=== PATIENT | female | born 1935 | race Caucasian/White ===

== ENCOUNTER → 2018-05-18 12:21 | Outpatient (CLI) | payer MEDICARE, OTHER, SELFPAY ==
--- NOTE | 2018-05-18 | DI.US.S_ITS ---
PROCEDURE: US ARTERIAL DUPLEX LE RT INDICATIONS: EDEMA TECHNIQUE: Color and pulse Doppler interrogation was performed of the right lower extremity arterial system, with image documentation. COMPARISON: None. FINDINGS: Common femoral artery: 83 cm/sec, with triphasic flow. Deep femoral artery: 61 cm/sec, with triphasic flow. Proximal superficial femoral artery: 91 cm/sec, with biphasic flow. Mid superficial femoral artery: 79 cm/sec, with biphasic flow. Distal superficial femoral artery: 74 cm/sec, with biphasic flow. Popliteal artery: 88 cm/sec, with biphasic flow. Posterior tibial artery: 93 cm/sec, with biphasic flow. Anterior tibial artery/dorsalis pedis: 32 cm/sec, with biphasic flow. Juarez-scale imaging description: Mild calcific and soft plaque over the right lower extremity, no area of significant stenosis found. Source of bleeding is not identified. IMPRESSION: Mild atherosclerotic irregularity involving the lower extremity arterial vasculature on the right, but no significant stenosis is seen. No dissection suspected. Source of the reported right lower extremity swelling and pain is not identified by this study. Dictated by: Luis Acosta M.D. on 05/18/2018 at 16:19 Approved by: Luis Acosta M.D. on 05/18/2018 at 16:22
== END ==
PROVIDERS: Family Provider Internal Medicine; PCP Internal Medicine; Visit Provider Internal Medicine
DX: R60.0 Localized edema (principal); I70.201 Unspecified atherosclerosis of native arteries of extremities, right leg; M79.661 Pain in right lower leg
CPT/HCPCS: 93926

== ENCOUNTER 2021-01-24 10:59 | Emergency (ER) | payer MEDICARE, OTHER, SELFPAY ==
[2021-01-24 11:01] VITALS: BP 137/67; PULSE 70; RESP 18; TEMP 37.1; O2SAT 98; BMI 25.8
--- NOTE | 2021-01-24 11:22 | DI.RAD.S_ITS ---
PROCEDURE: XR WRIST LT MIN 3V INDICATIONS: swelling TECHNIQUE: 4 views of the wrist were acquired. COMPARISON: None. FINDINGS: Bones: Osseous structures are demineralized. There is a nondisplaced fracture of the distal radial metaphysis. In addition there is a minimally displaced fracture of the base of the ulnar styloid. Mild degenerative changes of the wrist. No scaphoid fracture. Soft tissues: No suspicious soft tissue calcifications. IMPRESSION: Nondisplaced distal radial fracture. Mildly displaced ulnar styloid fracture. Dictated by: Orlin Wetzel D.O. on 01/24/2021 at 10:43 Approved by: Orlin Wetzel D.O. on 01/24/2021 at 10:45
--- NOTE | 2021-01-24 11:29 | ED_ITS ---
HPI - Extremity Injury (Upper) General Chief Complaint: Extremity Injury, Upper Stated Complaint: fell left wrist really hurts Time Seen by Provider: 01/24/21 11:22 Source: patient Mode of arrival: Ambulatory Limitations: no limitations History of Present Illness HPI narrative: This is a 85-year-old female who comes with a ground level fall yesterday around 1300. Patient was walking her dog when it stopped suddenly in front of her and she tripped over it and fell forward on an outstretched hand with her left upper extremity into a stone wall. Patient denies any numbness or tingling or any weakness. She has pain over the distal ulnar region. She has some swelling and ecchymosis over the thumb and thenar eminence but denies any significant pain in the bones of that region. She does have several lacerations over the thumb as well as near eminence that occurred. Patient states she did not wash it out initially but did later. Patient denies any numbness, tingling or weakness. She states she did hit her head and has a small abrasion. She states she does not take any medications regularly besides occasional NSAIDs. No aspirin or other anticoagulants. No neck or back pain. No loss of consciousness. No headache. No vision changes. No chest pain or shortness of breath. No GI or urinary symptoms. Patient is unsure of her tetanus status. She is allergic to penicillin. Related Data Previous Rx's Medication Instructions Recorded oxycodone-acetaminophen [Percocet] 1 tab PO Q6HP PRN #10 tab 08/25/16 cephalexin 500 mg PO Q6H #20 cap 01/24/21 cephalexin 500 mg PO Q6H #20 cap 01/24/21 tramadol 50 mg PO Q6H PRN #20 tab 01/24/21 tramadol [Ultram] 50 mg PO Q6H PRN #20 tab 01/24/21 Allergies Allergy/AdvReac Type Severity Reaction Status Date / Time Penicillins [PENICILLINS] Allergy Mild Unverified 01/03/18 13:07 Review of Systems Review of Systems ROS Unobtainable: All systems reviewed & are unremarkable except as noted in HPI and below Patient History Surgical History Status post surgery (10/30/15) Social History Smoking Status: Former smoker Smoking Status: Former smoker alcohol intake frequency: 0-2 drinks per day Substance Use Type: does not use Exam Narrative Exam Narrative: GEN: Patient appears in mild distress. HEAD: No evidence of trauma except for abrasion on the left., no raccoon/Hopson sign. NECK: Nontender, painless range of motion, trachea midline Negative for Nexus criteria, there is no mid line tenderness, distracting injury, altered mental status, neuro deficit, recent EtOH. EYES: PERRLA, EOMI ENT: External inspection normal, trachea is midline, no dental or oral injury, airway is normal and with normal occlusion, No bony tenderness RESP: Chest is nontender and has symmetric movement, no ecchymosis, breath sounds are normal no crackles, wheezes or rales CVS: Heart sounds are normal, no murmur noted, No JVD. ABG/GI: Nontender, soft, normal bowel sounds, no distention, no organomegaly NEURO: Oriented AOx3, neuro is grossly intact, sensation and motor is normal all 4 extremities moving, cranial nerves II through XII are intact, GCS is 15 PSYCH: Normal mood and affect SKIN: Patient has a laceration on the thenar eminence of the left thumb which is an avulsion flap. It is not well aligned. It is macerated and does not appear injected or visibly dirty. Patient also has a abrasion between the distal and proximal joint of the left thumb into the soft tissue. And patient has a small laceration of the distal thumb which appears superficial. Warm and dry, no crepitus and without decubitus BACK: No CVA tenderness, no vertebral tenderness, no step-off's, no crepitus EXT: Patient has tenderness over the distal ulna on of the left wrist. She has bruising and swelling over the radial side but is nontender and has bruising of the hand was thenar eminence and the thumb but has no bony tenderness of the carpal, hand or fingers. Patient has normal sensation, cap refills less than 2 seconds, hips are nontender, no pedal edema, normal color and temperature, normal range of motion of extremities with normal tendon exam, 2+ pulses in all four extremities Initial Vital Signs Initial Vital Signs: Vital Signs Temperature 98.7 F 01/24/21 11:01 Pulse Rate 70 01/24/21 11:01 Respiratory Rate 18 01/24/21 11:01 Blood Pressure 137/67 01/24/21 11:01 Pulse Oximetry 98 01/24/21 11:01 Course Orders Ordered: Discontinued Medications Bacitracin (Bacitracin Oint 0.9 Gm Pckt) 1 applic TOP NOW ONE Stop: 01/24/21 12:48 Last Admin: 01/24/21 12:52 Dose: 1 applic Documented by: GRAHAM Diphtheria/Tetanus/Acell Pertussis (Tet,Diph,Pertuss(Acell),Vac/Pf 0.5 Ml Syringe) 0.5 ml IM .ONCE ONE Stop: 01/24/21 11:37 Last Admin: 01/24/21 12:09 Dose: 0.5 ml Documented by: GRAHAM Consultations Consultation #1: Dr. Rosario, Time: 12:15 Vital Signs Vital signs: Vital Signs - 8 hr 01/24/21 12:47 Pulse Rate 74 Blood Pressure 114/73 Pulse Oximetry 97 [facility] - Extremity Injury (Upper) Imaging Data Extremity x-ray #1: Radiologist's Impression: Nondisplaced distal radial fracture as well as mildly displaced ulnar styloid fracture. Patient has mild degenerative changes of the wrist with no scaphoid fractures. [facility] Narrative Medical decision making narrative: This is an 85-year-old female with mechanical ground level fall. Discussed with patient she did have a small abrasion to her forehead. She does not have any symptoms she is not currently anticoagulated we discussed imaging and she defers at this time but we discussed return precautions and signs and symptoms to watch for. She does have a radial and ulnar fracture and was placed in splint. She has laceration on the palm of her thumb which is about 24 hours out, it does not appear acutely infected but is somewhat macerated in appears to be a bit high risk for infection and after discussion patient defers closure. We did Steri-Strip the area and discussed wound and patient was started on oral antibiotics. She has several other small abrasions and lacerations that do not require repair at this time. Patient is going to follow-up with Orthopedic surgery all questions answered. Discharge Plan Departure Patient Disposition: Home Clinical Impression: Left ulnar fracture, Laceration of hand, Distal radial fracture Instructions: DI for Wrist Fracture, DI for Open Laceration Activity Restrictions/Additional Instructions: Follow-up with Orthopedic surgery this week for recheck. Call Monday morning for an appointment. Take antibiotics until completely gone. You may take Tylenol up to a 1000 mg every 8 hours as needed for pain. If this is inadequate then take pain medication as prescribed. You may take pain medication 1-2 tablets every 6-8 hours as needed. This medication can make you sleepy do not drive, perform hazardous activities or make any major decisions while taking it. This medication will make you constipated, take a stool softener 1-2 times daily until stools are soft and regular. Splint Care: Keep splint clean and dry. Elevated affected body part to decrease swelling. OK to use ice pack on the affected body part. Use for 15-20 minutes each time, for 5-6x per day. If you develop worsening pain, numbness, tingling, discoloration of the affected body part, loosen the splint by loosening the YONI wrap, and either see your doctor for an urgent re-assessment, or return to the Emergency Department. Return to the Emergency Department for any new or worsening symptoms. Wound Care: Keep wound(s) clean and dry. Wash daily with soap and water only. Do not use over the counter products (alcohol or peroxide)on the wounds unless instructed by a physician, you may use a topical triple antibiotic ointment to the affected area twice daily. If wound condition worsens (increased/expanding redness, developing fluid blisters, or worsening pain), either contact your doctor for an urgent re- assessment , or return to the Emergency Department. Return to the Emergency Department for any new or worsening symptoms. Return if fever greater than 100.4 Fahrenheit, increased swelling, increasing pain or worsening symptoms such as increased discharge or spreading redness. Prescriptions: New cephalexin 500 mg capsule 500 mg PO Q6H Qty: 20 RF: 0 tramadol [Ultram] 50 mg tablet 50 mg PO Q6H PRN (Reason: pain) Qty: 20 RF: 0 cephalexin 500 mg capsule 500 mg PO Q6H Qty: 20 RF: 0 tramadol 50 mg tablet 50 mg PO Q6H PRN (Reason: pain) Qty: 20 RF: 0 No Action oxycodone-acetaminophen [Percocet] 5 MG/325 MG tablet 1 tab PO Q6HP PRNQty: 10 RF: 0 Referrals: Malini Ledesma MD [Primary Care Provider] -
[2021-01-24] MEDS: TET,DIPH,PERTUSS(ACELL),VAC/PF 0.5 ML SYRINGE IM (12:09)
[2021-01-24 12:47] VITALS: BP 114/73; PULSE 74; O2SAT 97
[2021-01-24] MEDS: BACITRACIN OINT 0.9 GM PCKT 1 APPLIC TOP (12:52)
== END 2021-01-24 13:14 | disposition home or self-care (01) ==
PROVIDERS: Emergency Provider Emergency Medicine; Family Provider Internal Medicine; PCP Internal Medicine
DX: S52.602A Unspecified fracture of lower end of left ulna, initial encounter for closed fracture (principal); S52.502A Unspecified fracture of the lower end of left radius, initial encounter for closed fracture; S61.412A Laceration without foreign body of left hand, initial encounter; W19.XXXA Unspecified fall, initial encounter; Z23 Encounter for immunization
CPT/HCPCS: 29125; 73110; 90471; 99283; 99284; 90715

== ENCOUNTER 2023-01-23 10:43 | Emergency (ER) | payer MEDICARE, OTHER, SELFPAY ==
[2023-01-23] VITALS (19 sets, daily range): BP systolic 149–197; BP diastolic 70–91; PULSE 59–78; RESP 14–16; TEMP 36.7; O2SAT 83–99; BMI 29.3
--- NOTE | 2023-01-23 10:57 | DI.CT.S_ITS ---
PROCEDURE: CT HEAD/BRAIN WO CON INDICATIONS: Left facial droop. TECHNIQUE: Noncontrast 4.5 mm thick angled axial sections acquired from the foramen magnum to the vertex, with coronal and sagittal reformats. For radiation dose reduction, the following was used: automated exposure control, adjustment of mA and/or kV according to patient size. COMPARISON: None. FINDINGS: Image quality: Excellent. CSF spaces: Basal cisterns are patent. No extra-axial fluid collections. The ventricles are symmetric in size and shape. Brain: No intracranial bleeds or masses. There is cerebral volume loss for age, with resultant ventricular and sulcal prominence. There are periventricular and deep white matter chronic small vessel ischemic changes. There is intracranial internal carotid artery atherosclerosis. Skull and face: Calvarium and visualized facial bones appear intact, without suspicious lesions. Sinuses: Visualized sinuses and mastoids are clear. IMPRESSION: 1. No acute intracranial abnormalities. 2. Cerebral volume loss and chronic microvascular ischemic changes. Dictated by: Monique Davis M.D. on 01/23/2023 at 11:54 Approved by: Monique Davis M.D. on 01/23/2023 at 11:55
--- NOTE | 2023-01-23 10:58 | DI.CT.S_ITS ---
PROCEDURE: CT ANGIO HEAD AND NECK INDICATIONS: Left facial droop, t-5 TECHNIQUE: After the administration of intravenous contrast, 1 mm thick sections acquired from the aortic arch through the [place]. Post-contrast 4.5 mm thick sections then re-acquired from the foramen magnum to the vertex. 3-dimensional zlkhxct-[id number]-[id number] (MIP) and/or volume rendering reformats were acquired of the central intracranial vasculature and neck separately. For radiation dose reduction, the following was used: automated exposure control, adjustment of mA and/or kV according to patient size. COMPARISON: [facility], CT, CT HEAD/BRAIN WO CON, 01/23/2023, 11:24. FINDINGS: Image quality: Streaky artifacts in the thoracic inlet and mid neck. BRAIN: CSF spaces: Ventricles are normal in size and shape. Basal cisterns are patent. No extra-axial fluid collections. Brain: No midline shift. No intracranial bleeds or masses. Juarez-white matter interface appears intact. Skull and face: Calvarium and facial bones appear intact, without suspicious lesions. Orbits appear normal. Sinuses: Sinuses and mastoids are clear. HEAD CT ANGIOGRAPHY: Anterior circulation: Intracranial internal carotid arteries are normal in size and flow. The flow within the paired anterior cerebral arteries is normal and symmetric. The flow within the middle cerebral arteries is normal and symmetric. The anterior communicating artery is seen. No aneurysms are seen. Posterior circulation: Visualized portions of the vertebral arteries demonstrate normal caliber, and join to form a normal appearing basilar artery. Flow within the posterior cerebral arteries is normal and symmetric. No aneurysms are seen. NECK CT ANGIOGRAPHY: Carotid system: The great vessels demonstrate a conventional anatomy as they arise from the aortic arch. The origins of the common carotid arteries appear patent. The proximal left common carotid artery is partially obscured by streaky artifact. The common carotid arteries otherwise demonstrate normal caliber and courses. The bifurcation regions are both widely patent. The internal carotid arteries demonstrate normal calibers and courses. Posterior circulation: The origins of the vertebral arteries both appear widely patent. The more superior extracranial portions of both vertebral arteries also demonstrate normal courses and calibers. They join to form a normal appearing basilar artery. Soft tissues: There are bilateral thyroid nodules. Bones: No suspicious bony lesions. Visualized cervical spine appears normally aligned. IMPRESSION: 1. No acute intracranial abnormalities. Consider MRI if clinical suspicion for acute ischemia is high. 2. No large vessel occlusion or high-grade stenosis in anterior or posterior circulations. 3. No large fracture occlusion or high-grade stenosis in cervical carotid arteries or vertebral arteries bilaterally. 4. Bilateral thyroid nodules. Consider thyroid ultrasound for follow-up. Any quantitative measurements of stenosis were performed using NASCET criteria. Dictated by: Monique Davis M.D. on 01/23/2023 at 12:58 Approved by: Monique Davis M.D. on 01/23/2023 at 13:07
[2023-01-23 11:12] LABS: Add Manual Diff / Slide Review NO; Basophils Absolute Auto 0 /uL (0-100); Basophils Percent Auto 0.6 % (0-2); Eosinophils Absolute Auto 100 /uL (0-450); Eosinophils Percent Auto 2.1 % (2-4); Hematocrit 38.6 % (36-46); Hemoglobin 13.2 g/dL (12.0-16.0); Lymphocytes Absolute Auto 1500 /uL (1100-4500); Lymphocytes Percent Auto 24.7 % (25-40); Mean Corpuscular Hemoglobin 29.3 PG (26-34); Monocytes Absolute Auto 600 /uL (0-900); Neutrophils Absolute Auto 3900 /uL (1500-7000); Neutrophils Percent Auto 63.6 % (50-75); Platelet Count 319 X10^3/uL (150-400); Red Blood Cell Count 4.49 X10^6/uL (4.0-5.2); White Blood Cell Count 6.2 X10^3/uL (4.5-11.0)
[2023-01-23 11:13] LABS: PTT Partial Thromboplastin Tim 31 SECONDS (26-36)
[2023-01-23 11:18] LABS: Alanine Aminotransferase 30 IU/L (<35); Albumin 4.4 g/dL (3.5-5.0); Albumin Globulin Ratio 1.4 (1.0-2.8); Alkaline Phosphatase 128 U/L (38-126); Aspartate Aminotransferase 34 IU/L (14-36); Bilirubin Total 0.6 mg/dL (0.2-1.3); Blood Urea Nitrogen 13 mg/dL (7-17); Calcium 9.5 mg/dL (8.4-10.2); Carbon Dioxide 26 mmol/L (22-32); Chloride 105 mmol/L (98-107); Creatine Kinase 199 U/L (30-135); Estimated Glomerular Filt Rate > 60 mL/min (>60); Ethanol (ETOH) < 10 mg/dL; Globulin 3.1 g/dL (1.7-4.1); Glucose 94 mg/dL (80-110); HEMOLYSIS 18 (0-50); Potassium 4.6 mmol/L (3.4-5.1); Sodium 137 mmol/L (137-145); Total Protein 7.5 g/dL (6.3-8.2)
[2023-01-23 11:28] LABS: Troponin I < 0.012 ng/mL (0.01-0.034)
[2023-01-23 11:33] LABS: CKMB % Relative Index 2.1 % (1.5-5.0); Creatine Kinase MB 4.26 ng/mL (<2.37)
--- NOTE | 2023-01-23 11:53 | ED_ITS ---
HPI - Neuro Symptoms/Deficit General Chief Complaint: Neuro Symptoms/Deficit Stated Complaint: drooping face, pain in eyeball, numb tongue Time Seen by Provider: 01/23/23 11:35 Source: patient Mode of arrival: Ambulatory Limitations: no limitations History of Present Illness HPI Narrative: Patient is an 87-year-old female who was sent in the emergency department from walk-in clinic for evaluation of left-sided facial droop. Patient states that on Monday of last week (5 days ago) she started to notice some numbness on the left side of her tongue. The next day he stated that the numbness was still there but she did not notice any additional symptoms. It was on Monday (3rd day of symptoms) that she started to notice drooping of the left side of her face. Again no upper lower extremity symptoms. She stated that yesterday she started noticed some pain in her left eye which prompted her to go to the walk-in clinic today. She states she is having a slight headache but this is not new for her. She is never had a stroke before. Never had heart attack before not on anticoagulation. No chest pain shortness of breath rashes. She has had her shingles vaccine. On Anticoagulants: No Related Data Home Medications Medication Instructions Recorded Confirmed loratadine 10 mg tablet 10 mg PO DAILY PRN allergies 01/23/23 01/23/23 Previous Rx's Medication Instructions Recorded acyclovir 400 mg tablet 400 mg PO 5XD 10 days #50 tabs 01/23/23 prednisone 20 mg tablet 60 mg PO DAILY 1 week #21 tabs 01/23/23 Allergies Allergy/AdvReac Type Severity Reaction Status Date / Time Penicillins [PENICILLINS] Allergy Mild Verified 01/23/23 10:55 Review of Systems Review of Systems ROS Unobtainable: All systems reviewed & are unremarkable except as noted in HPI and below Hematologic/Lymphatic On Anticoagulants: No Patient History Surgical History Status post surgery (10/30/15) Social History Smoking Status: Former smoker Smoking Status: Former smoker alcohol intake frequency: 0-2 drinks per day Substance Use Type: does not use Exam Initial Vital Signs Initial Vital Signs: Vital Signs Pulse Oximetry 83 L 01/23/23 10:47 Const General: cooperative, comfortable and No ill appearing HENMT Head: normal to inspection and normocephalic Ears: TM's normal bilaterally and EAC's normal Mouth: oral mucosae normal Eyes EOM: EOM intact bilaterally Other: Interocular pressure left eye 18. Interocular pressure right eye 21. No uptake noted with fluorescein staining of the left eye. Resp Effort & Inspection: normal respiratory effort Auscultation: clear to auscultation bilaterally Cardio Rate: regular rate Rhythm: regular rhythm GI Inspection: normal to inspection Skin General: no rashes or lesions noted Neuro Cognition: normal cognition Speech: speech normal Gait: normal gait Motor: muscle tone normal throughout Sensory Exam: no sensory deficits noted Coordination: [id number] test normal and doej-[id number] test normal Other: Patient does have drooping of the left side of her face. Sensation is intact to the left side of her face. She can raise her left forehead but less so than the right. She is difficulty closing her left eye completely. Tongue does not deviate. Extrem General: normal to inspection and capillary refill normal Psych Appearance: grossly normal Scores NIH Stroke Scale Level of Conciousness: Alert, keenly responsive Ask month/age: Answers both questions correctly. Open/close eyes, close hand: Performs both tasks correctly Best gaze horizontal: Normal Visual huggins: No visual loss Facial palsy: Partial paralysis, total or near total paralysis of lower face Left arm drift: No drift for full 10 sec Right arm drift: No drift for full 10 sec Left leg drift: No drift for full 5 sec Right leg drift: No drift for full 5 sec Limb ataxia: Absent Sensory on face/arms/legs: Normal, no sensory loss Best language: No aphasia, normal Dysarthria: Normal Extinction or inattention: No abnormality Total NIH Stroke scale score: 2 Course Orders Ordered: ED Orders 01/23/23 10:50 Complete Blood Count AUTO DIFF Stat Comprehensive Metabolic Panel Stat Ethanol (ETOH) Stat PTT Partial Thromboplastin Yared Stat Prothrombin Time INR Stat Troponin & CK Cardiac Panel Stat 01/23/23 10:57 CT head/brain wo con Stat EKG-12 Lead Stat 01/23/23 10:58 CT angio head and neck Stat 01/23/23 11:33 COVID19 -Nasal RAPID Stat Discontinued Medications Fluorescein Sodium (Fluorescein 1 Mg Strip) 1 mg EYE-BOTH NOW ONE Stop: 01/23/23 11:55 Last Admin: 01/23/23 12:07 Dose: 1 mg Documented By: KIAN Proparacaine HCl (Proparacaine 0.5% Ophth [place]) 1 drops EYE-LEFT NOW ONE Stop: 01/23/23 11:55 Last Admin: 01/23/23 12:07 Dose: 1 drop Documented By: KIAN Vital Signs Vital signs: Vital Signs - 8 hr 01/23/23 10:52 01/23/23 10:47 01/23/23 10:49 Temperature 98.0 F Pulse Rate 78 67 Respiratory Rate 14 Blood Pressure 197/71 H Pulse Oximetry 99 83 L 97 Oxygen Delivery Method Room Air 01/23/23 10:49 01/23/23 11:00 01/23/23 11:01 Temperature Pulse Rate 59 L Respiratory Rate Blood Pressure 197/91 H 149/71 H Pulse Oximetry 97 Oxygen Delivery Method 01/23/23 11:01 01/23/23 11:30 01/23/23 11:31 Temperature Pulse Rate 59 L 61 65 Respiratory Rate 16 Blood Pressure Pulse Oximetry 97 97 98 Oxygen Delivery Method Room Air 01/23/23 11:31 01/23/23 11:45 01/23/23 12:00 Temperature Pulse Rate 61 64 Respiratory Rate Blood Pressure 172/78 H Pulse Oximetry 97 97 Oxygen Delivery Method 01/23/23 12:01 01/23/23 12:01 01/23/23 12:15 Temperature Pulse Rate 67 60 Respiratory Rate Blood Pressure 159/80 H Pulse Oximetry 97 97 Oxygen Delivery Method 01/23/23 12:30 01/23/23 12:31 01/23/23 12:31 Temperature Pulse Rate 59 L 61 Respiratory Rate Blood Pressure 152/70 H Pulse Oximetry 97 97 Oxygen Delivery Method 01/23/23 12:45 01/23/23 13:00 01/23/23 13:00 Temperature Pulse Rate 63 61 Respiratory Rate Blood Pressure 168/79 H Pulse Oximetry 96 97 Oxygen Delivery Method Room Air 01/23/23 13:12 01/23/23 13:12 01/23/23 13:15 Temperature Pulse Rate 61 62 Respiratory Rate Blood Pressure 172/83 H Pulse Oximetry 98 99 Oxygen Delivery Method 01/23/23 13:30 01/23/23 13:31 01/23/23 13:31 Temperature Pulse Rate 62 61 Respiratory Rate Blood Pressure 156/72 H Pulse Oximetry 97 97 Oxygen Delivery Method Room Air MDM - Neuro Symptoms/Deficit Lab Data Attestation: I reviewed the patient's lab results. 01/23/23 10:50 01/23/23 10:50 Labs: Lab Results 01/23/23 01/23/23 01/23/23 Range/Units 10:50 10:50 10:50 WBC 6.2 (4.5-11.0) X10^3/uL RBC 4.49 (4.0-5.2) X10^6/uL Hgb 13.2 (12.0-16.0) g/dL Hct 38.6 (36-46) % MCV 86.0 (80-100) fL MCH 29.3 (26-34) PG MCHC 34.0 (30-36) % RDW 14.0 (11.6-14.8) % Plt Count 319 (150-400) X10^3/uL Neut % (Auto) 63.6 (50-75) % Lymph % (Auto) 24.7 L (25-40) % [place] % (Auto) 9.0 (3-14) % Eos % (Auto) 2.1 (2-4) % Baso % (Auto) 0.6 (0-2) % Neut # (Auto) 3900 (7859-6043) /uL Lymph # (Auto) 1500 (6296-6422) /uL [place] # (Auto) 600 (0-900) /uL Eos # (Auto) 100 (0-450) /uL Baso # (Auto) 0 (0-100) /uL PT 12.0 (10.1-12.7) SECONDS INR 1.0 (0.9-1.3) APTT 31 (26-36) SECONDS Sodium 137 (137-145) mmol/L Potassium 4.6 (3.4-5.1) mmol/L Chloride 105 (98-107) mmol/L Carbon Dioxide 26 (22-32) mmol/L BUN 13 (7-17) mg/dL Creatinine 0.62 (0.52-1.04) mg/dL Estimated GFR > 60 (>60) mL/min BUN/Creatinine Ratio 21.0 (6-22) Glucose 94 (80-110) mg/dL Calcium 9.5 (8.4-10.2) mg/dL Total Bilirubin 0.6 (0.2-1.3) mg/dL AST 34 (14-36) IU/L ALT 30 (<35) IU/L Alkaline Phosphatase 128 H (38-126) U/L Total Creatine Kinase 199 H (30-135) U/L CK-MB (CK-2) 4.26 H (<2.37) ng/mL CK-MB (CK-2) Rel Index 2.1 (1.5-5.0) % Troponin I < 0.012 (0.01-0.034) ng/mL Total Protein 7.5 (6.3-8.2) g/dL Albumin 4.4 (3.5-5.0) g/dL Globulin 3.1 (1.7-4.1) g/dL Albumin/Globulin Ratio 1.4 (1.0-2.8) Ethyl Alcohol < 10 ( - 10) mg/dL SARS-CoV-2 (PCR) (Negative) 01/23/23 Range/Units 11:33 WBC (4.5-11.0) X10^3/uL RBC (4.0-5.2) X10^6/uL Hgb (12.0-16.0) g/dL Hct (36-46) % MCV (80-100) fL MCH (26-34) PG MCHC (30-36) % RDW (11.6-14.8) % Plt Count (150-400) X10^3/uL Neut % (Auto) (50-75) % Lymph % (Auto) (25-40) % [place] % (Auto) (3-14) % Eos % (Auto) (2-4) % Baso % (Auto) (0-2) % Neut # (Auto) (8995-4977) /uL Lymph # (Auto) (6718-0315) /uL [place] # (Auto) (0-900) /uL Eos # (Auto) (0-450) /uL Baso # (Auto) (0-100) /uL PT (10.1-12.7) SECONDS INR (0.9-1.3) APTT (26-36) SECONDS Sodium (137-145) mmol/L Potassium (3.4-5.1) mmol/L Chloride (98-107) mmol/L Carbon Dioxide (22-32) mmol/L BUN (7-17) mg/dL Creatinine (0.52-1.04) mg/dL Estimated GFR (>60) mL/min BUN/Creatinine Ratio (6-22) Glucose (80-110) mg/dL Calcium (8.4-10.2) mg/dL Total Bilirubin (0.2-1.3) mg/dL AST (14-36) IU/L ALT (<35) IU/L Alkaline Phosphatase (38-126) U/L Total Creatine Kinase (30-135) U/L CK-MB (CK-2) (<2.37) ng/mL CK-MB (CK-2) Rel Index (1.5-5.0) % Troponin I (0.01-0.034) ng/mL Total Protein (6.3-8.2) g/dL Albumin (3.5-5.0) g/dL Globulin (1.7-4.1) g/dL Albumin/Globulin Ratio (1.0-2.8) Ethyl Alcohol ( - 10) mg/dL SARS-CoV-2 (PCR) Negative (Negative) Imaging Data CT scan - head: Radiologist's Impression: PROCEDURE:? CT HEAD/BRAIN WO CON ? INDICATIONS:? Left facial droop. ? TECHNIQUE:? Noncontrast 4.5 mm thick angled axial sections acquired from the foramen magnum to the vertex, with coronal and sagittal reformats.? For radiation dose reduction, the following was used:? automated exposure control, adjustment of mA and/or kV according to patient size.? ? COMPARISON:? None. ? FINDINGS:? Image quality:? Excellent.? ? CSF spaces:? Basal cisterns are patent.? No extra-axial fluid collections.? The ventricles are symmetric in size and shape.? ? Brain:? No intracranial bleeds or masses.? There is cerebral volume loss for age, with resultant ventricular and sulcal prominence.? There are periventricular and deep white matter chronic small vessel ischemic changes.? There is intracranial internal carotid artery atherosclerosis.? ? Skull and face:? Calvarium and visualized facial bones appear intact, without suspicious lesions.? ? Sinuses:? Visualized sinuses and mastoids are clear.? ? IMPRESSION:? ? 1. No acute intracranial abnormalities. ? 2. Cerebral volume loss and chronic microvascular ischemic changes. CTA - brain/neck: Radiologist's Impression: PROCEDURE:? CT ANGIO HEAD AND NECK ? INDICATIONS:? Left facial droop, t-5 ? TECHNIQUE:? After the administration of intravenous contrast, 1 mm thick sections acquired from the aortic arch through the [place].? Post-contrast 4.5 mm thick sections then re-acquired from the foramen magnum to the vertex.? 3-dimensional kdkoxzu-[id number]-[id number] (MIP) and/or volume rendering reformats were acquired of the central intracranial vasculature and neck separately. For radiation dose reduction, the following was used:? automated exposure control, adjustment of mA and/or kV according to patient size.? ? COMPARISON:? [facility], CT, CT HEAD/BRAIN WO CON, 01/23/2023, 11:24. ? FINDINGS:? Image quality:? Streaky artifacts in the thoracic inlet and mid neck.? ? BRAIN:? CSF spaces:? Ventricles are normal in size and shape.? Basal cisterns are patent.? No extra-axial fluid collections.? ? Brain:? No midline shift.? No intracranial bleeds or masses.? [place]-white matter interface appears intact.? ? Skull and face:? Calvarium and facial bones appear intact, without suspicious lesions.? Orbits appear normal.? ? Sinuses:? Sinuses and mastoids are clear.? ? HEAD CT ANGIOGRAPHY:? Anterior circulation:? Intracranial internal carotid arteries are normal in size and flow.? The flow within the paired anterior cerebral arteries is normal and symmetric.? The flow within the middle cerebral arteries is normal and symmetric.? The anterior communicating artery is seen.? No aneurysms are seen.? ? Posterior circulation:? Visualized portions of the vertebral arteries demonstr ate normal caliber, and join to form a normal appearing basilar artery.? Flow within the posterior cerebral arteries is normal and symmetric.? No aneurysms are seen.? ? NECK CT ANGIOGRAPHY:? Carotid system:? The great vessels demonstrate a conventional anatomy as they arise from the aortic arch.? The origins of the common carotid arteries appear patent.? The proximal left common carotid artery is partially obscured by streaky artifact.? The common carotid arteries otherwise demonstrate normal caliber and courses.? The bifurcation regions are both widely patent.? The internal carotid arteries demonstrate normal calibers and courses.? ? Posterior circulation:? The origins of the vertebral arteries both appear widely patent.? The more superior extracranial portions of both vertebral arteries also demonstrate normal courses and calibers.? They join to form a normal appearing basilar artery.? ? Soft tissues:? There are bilateral thyroid nodules. ? Bones:? No suspicious bony lesions.? Visualized cervical spine appears normally aligned.? IMPRESSION:? ? 1. No acute intracranial abnormalities.? Consider MRI if clinical suspicion for acute ischemia is high. ? 2. No large vessel occlusion or high-grade stenosis in anterior or posterior circulations. ? 3. No large fracture occlusion or high-grade stenosis in cervical carotid arteries or vertebral arteries bilaterally. ? 4. Bilateral thyroid nodules.? Consider thyroid ultrasound for follow-up. ECG Data Attestation: I personally reviewed and interpreted this ECG as follows: Interpretation: Sinus rhythm Ventricular rate is 61 Left axis deviation Normal QRS Nonspecific ST T wave changes MDM Narrative Medical decision making narrative: Patient does have deficits to the left side of her face. She does have involvement of the upper portion of the left side of the face but it is not a complete paralysis. Her symptoms been going on for the past several days. Her head CT and CTA of her head and neck are unremarkable. Interocular pressures are unremarkable. There are no dendrites noted with fluorescein staining nor foreign bodies nor corneal abrasions. There is no ear involvement. Did consider CVA/TIA however her symptoms today are most consistent with Loving's palsy. I did discuss this with her. We will send her home on treatment for this. It was sent to the pharmacy of her choice. I did advise that she contact her primary doctor for follow-up. She expressed understanding and agreement this plan. Discharge Plan Departure Patient Disposition: Home Clinical Impression: Loving's palsy Instructions: DI for [place] Palsy Activity Restrictions/Additional Instructions: Indications were sent to the [facility] pharmacy per your request. Please start taking them as directed. Do recommend you contact your primary doctor for a follow- up. Return to the emergency department for new or worsening symptoms. Prescriptions: New prednisone 20 mg tablet 60 mg PO DAILY 7 Days Qty: 21 0RF acyclovir 400 mg tablet 400 mg PO 5XD 10 Days Qty: 50 0RF No Action loratadine 10 mg tablet 10 mg PO DAILY PRN (Reason: allergies) Referrals: Malini Ledesma MD [Primary Care Provider] - Stand Alone Forms: Patient Portal/API
[2023-01-23 12:04] LABS: COVID19 -Nasal RAPID Negative (Negative)
[2023-01-23] MEDS: PROPARACAINE 0.5% OPHTH SOL 1 DROPS EYE-LEFT (12:07)
[2023-01-23] MEDS: FLUORESCEIN 1 MG STRIP EYE-BOTH (12:07)
== END 2023-01-23 13:49 | disposition home or self-care (01) ==
PROVIDERS: Emergency Provider Emergency Medicine; Family Provider Internal Medicine; PCP Internal Medicine
DX: G51.0 Bell's palsy (principal); R07.9 Chest pain, unspecified; R29.702 NIHSS score 2; Z20.822 Contact with and (suspected) exposure to COVID-19
CPT/HCPCS: 36415; 70450; 70496; 70498; 80053; 80320; 82550; 82553; 84484; 85025; 85610; 85730; 87635; 93005; 99284; 99285; C9803; Q9967

== ENCOUNTER 2023-06-17 12:56 | Observation (INO) | payer MEDICARE, OTHER, SELFPAY ==
[2023-06-17] VITALS (22 sets, daily range): BP systolic 106–148; BP diastolic 78–105; PULSE 127–135; RESP 10–22; TEMP 35.9; O2SAT 95–99; BMI 26.6; BMI 26.8
--- NOTE | 2023-06-17 13:12 | ED_ITS ---
HPI - Arrhythmia/Palpitations General Chief Complaint: Arrhythmia/Palpitations Stated Complaint: STATES TACHICARDIA 138 BPM Time Seen by Provider: 06/17/23 13:05 Source: patient Mode of arrival: Ambulatory History of Present Illness HPI narrative: 88-year-old female former smoker with history of taylor palsy presents with a friend and a chief complaint of episodes of tachycardia off and on for the past few weeks. She states that it seemed to start in the near aftermath of a planned fasting diet. She states that she feels some slight chest pressure and shortness of breath and occasionally feels dizzy and lightheaded. She denies an y history of atrial fibrillation or other tachycardia. She denies fever or chills. She is had no change in medications or diet recently. She did have long distance travel and took a cruise around the world this year from September until December. She denies any history of blood clot or pulmonary embolism. She denies any lower extremity pain, swelling or redness. Related Data Home Medications Medication Instructions Recorded Confirmed loratadine 10 mg tablet 10 mg PO DAILY PRN allergies 01/23/23 01/23/23 Allergies Allergy/AdvReac Type Severity Reaction Status Date / Time Penicillins [PENICILLINS] Allergy Mild Verified 06/17/23 13:04 Review of Systems Review of Systems Narrative: GENERAL: Denies chills, fatigue, malaise, fever, sweats. HEENT: Denies sinus pain, ear pain, sore throat, difficulty swallowing, dizziness. RESPIRATORY: see HPI CARDIOVASCULAR: see HPI GASTROINTESTINAL: Denies nausea, vomiting, abdominal pain, diarrhea, constipation, melena. : Denies dysuria, frequency, incontinence, hematuria, urinary retention. MUSCULOSKELETAL: denies weakness, joint pain, or bony pain SKIN: Denies rash, skin lesions, or other NEUROLOGIC: Denies weakness, headache, numbness, change in speech, confusion, seizures, incoordination. PSYCHIATRIC: No concerning psychosocial issues. 12 point review of systems is negative except for those stated above Patient History Surgical History Status post surgery (10/30/15) Social History Smoking Status: Former smoker Smoking Status: Former smoker alcohol intake frequency: a few times a week Substance Use Type: does not use Exam Narrative Exam Narrative: GENERAL: [88] year old patient appears stated age. Well-developed patient, in mild distress. HEAD: Atraumatic. Normocephalic. EYES: Pupils equal round and reactive. Extraocular motions intact. No scleral icterus. No injection or drainage. ENT: Nose without bleeding, purulent drainage. Throat without erythema, tonsillar hypertrophy or exudate. Airway patent. NECK: Trachea midline. Non tender CARDIOVASCULAR: tachycardic but regular rhythm without murmurs, gallops, or rub s. RESPIRATORY: Clear to auscultation. Breath sounds equal bilaterally. No wheezes, rales, or rhonchi. GASTROINTESTINAL: Abdomen soft, non-tender, nondistended. EXTREMITIES: No edema or joint tenderness. BACK: Nontender without deformity or crepitance. No flank tenderness. NEURO: AOx3. SKIN: No rash or erythema of visible areas Initial Vital Signs Initial Vital Signs: Vital Signs Pulse Rate 135 H 06/17/23 13:07 Pulse Oximetry 99 06/17/23 13:07 Course Orders Ordered: ED Orders 06/17/23 13:14 EKG-12 Lead Stat 06/17/23 13:21 Complete Blood Count AUTO DIFF Stat Comprehensive Metabolic Panel Stat D Dimer Stat Magnesium Stat NT-proBNP (BNP-Adult 18+) Stat PTT Partial Thromboplastin Yared Stat Prothrombin Time INR Stat TSH [Thyroid Stimulating Hormone] Stat Troponin & CK Cardiac Panel Stat 06/17/23 13:58 CT angio chest PE protocol Stat 06/17/23 16:35 Urine Culture Stat Urine Microscopic Stat 06/17/23 17:20 COVID19 -Nasal RAPID Stat Discontinued Medications Apixaban (Apixaban 5 Mg Tablet) 5 mg PO NOW ONE Stop: 06/17/23 19:25 Furosemide (Furosemide 40 Mg/4 Ml Vial) 40 mg IV NOW ONE Stop: 06/17/23 18:24 Last Admin: 06/17/23 19:00 Dose: 40 mg Documented By: SERGIO Sodium Chloride (Normal Saline 0.9%) 500 mls @ 1,000 mls/hr IV BOLUS ONE Stop: 06/17/23 13:37 Last Infusion: 06/17/23 15:00 Dose: 0 mls/hr Documented By: Admin: 06/17/23 14:30 Dose: 1,000 mls/hr Documented By: RL Metoprolol Tartrate (Metoprolol Tartrate 5 Mg/5 Ml Inj) 5 mg IV NOW ONE Stop: 06/17/23 18:33 Last Admin: 06/17/23 19:00 Dose: 5 mg Documented By: SERGIO Metoprolol Tartrate (Metoprolol Ir 25 Mg Tablet) 25 mg PO NOW ONE Stop: 06/17/23 19:41 Vital Signs Vital signs: Vital Signs - 8 hr 06/17/23 13:07 06/17/23 13:23 06/17/23 13:23 Pulse Rate 135 H 134 H Respiratory Rate 16 Blood Pressure 139/94 H Pulse Oximetry 99 98 06/17/23 13:30 06/17/23 13:30 06/17/23 13:33 Pulse Rate 134 H Respiratory Rate 13 Blood Pressure 140/93 H 131/84 Pulse Oximetry 99 06/17/23 13:33 06/17/23 14:00 06/17/23 14:00 Pulse Rate 133 H 131 H Respiratory Rate 15 Blood Pressure 141/97 H Pulse Oximetry 96 97 06/17/23 14:30 06/17/23 14:30 06/17/23 15:00 Pulse Rate 130 H Respiratory Rate 20 Blood Pressure 141/98 H 148/101 H Pulse Oximetry 97 06/17/23 15:00 06/17/23 15:30 06/17/23 15:30 Pulse Rate 130 H 132 H Respiratory Rate 15 16 Blood Pressure 140/95 H Pulse Oximetry 96 95 06/17/23 15:55 06/17/23 15:55 06/17/23 16:00 Pulse Rate 132 H Respiratory Rate 22 Blood Pressure 143/104 H 143/105 H Pulse Oximetry 97 06/17/23 16:00 06/17/23 16:30 06/17/23 16:30 Pulse Rate 132 H 130 H Respiratory Rate 12 14 Blood Pressure 141/93 H Pulse Oximetry 98 97 06/17/23 17:00 06/17/23 17:00 06/17/23 17:30 Pulse Rate 130 H Respiratory Rate 15 Blood Pressure 138/92 H 134/93 H Pulse Oximetry 97 06/17/23 17:30 06/17/23 18:00 06/17/23 18:00 Pulse Rate 130 H 131 H Respiratory Rate 21 18 Blood Pressure 140/103 H Pulse Oximetry 97 98 06/17/23 18:30 06/17/23 18:30 06/17/23 19:00 Pulse Rate 132 H Respiratory Rate 10 L Blood Pressure 138/93 H 118/89 Pulse Oximetry 98 06/17/23 19:00 Pulse Rate 132 H Respiratory Rate 13 Blood Pressure Pulse Oximetry 97 MDM - Arrhythmia/Palpitations Lab Data 06/17/23 13:21 06/17/23 13:21 Labs: Lab Results 06/17/23 06/17/23 06/17/23 Range/Units 13:21 13:21 13:21 WBC 6.0 (4.5-11.0) X10^3/uL RBC 4.11 (4.0-5.2) X10^6/uL Hgb 11.9 L (12.0-16.0) g/dL Hct 35.8 L (36-46) % MCV 87.1 (80-100) fL MCH 29.1 (26-34) PG MCHC 33.4 (30-36) % RDW 14.7 (11.6-14.8) % Plt Count 297 (150-400) X10^3/uL Neut % (Auto) 62.1 (50-75) % Lymph % (Auto) 24.7 L (25-40) % [place] % (Auto) 10.7 (3-14) % Eos % (Auto) 1.9 L (2-4) % Baso % (Auto) 0.6 (0-2) % Neut # (Auto) 3700 (0634-7944) /uL Lymph # (Auto) 1500 (4749-3643) /uL [place] # (Auto) 600 (0-900) /uL Eos # (Auto) 100 (0-450) /uL Baso # (Auto) 0 (0-100) /uL PT 13.3 H (10.1-12.7) SECONDS INR 1.2 (0.9-1.3) APTT 31 (26-36) SECONDS D-Dimer 1910 H (<500) ng/ml Sodium (137-145) mmol/L Potassium (3.4-5.1) mmol/L Chloride (98-107) mmol/L Carbon Dioxide (22-32) mmol/L BUN (7-17) mg/dL Creatinine (0.52-1.04) mg/dL Estimated GFR (>60) mL/min BUN/Creatinine Ratio (6-22) Glucose (80-110) mg/dL Calcium (8.4-10.2) mg/dL Magnesium (1.6-2.3) mg/dL Total Bilirubin (0.2-1.3) mg/dL AST (14-36) IU/L ALT (<35) IU/L Alkaline Phosphatase (38-126) U/L Total Creatine Kinase (30-135) U/L Troponin I (0.01-0.034) ng/mL NT-Pro-B Natriuret Pep (<450) pg/mL Total Protein (6.3-8.2) g/dL Albumin (3.5-5.0) g/dL Globulin (1.7-4.1) g/dL Albumin/Globulin Ratio (1.0-2.8) TSH (0.47-4.68) uIU/mL Urine RBC (0-5/HPF) Urine WBC (0-5/HPF) Ur Squamous Epith Cells (0-5/HPF) Urine Bacteria (None) Ur Culture Indicated? SARS-CoV-2 (PCR) (Negative) 06/17/23 06/17/23 06/17/23 Range/Units 13:21 13:21 16:35 WBC (4.5-11.0) X10^3/uL RBC (4.0-5.2) X10^6/uL Hgb (12.0-16.0) g/dL Hct (36-46) % MCV (80-100) fL MCH (26-34) PG MCHC (30-36) % RDW (11.6-14.8) % Plt Count (150-400) X10^3/uL Neut % (Auto) (50-75) % Lymph % (Auto) (25-40) % [place] % (Auto) (3-14) % Eos % (Auto) (2-4) % Baso % (Auto) (0-2) % Neut # (Auto) (4640-6094) /uL Lymph # (Auto) (4022-6318) /uL [place] # (Auto) (0-900) /uL Eos # (Auto) (0-450) /uL Baso # (Auto) (0-100) /uL PT (10.1-12.7) SECONDS INR (0.9-1.3) APTT (26-36) SECONDS D-Dimer (<500) ng/ml Sodium 139 (137-145) mmol/L Potassium 3.9 (3.4-5.1) mmol/L Chloride 106 (98-107) mmol/L Carbon Dioxide 26 (22-32) mmol/L BUN 9 (7-17) mg/dL Creatinine 0.68 (0.52-1.04) mg/dL Estimated GFR > 60 (>60) mL/min BUN/Creatinine Ratio 13.2 (6-22) Glucose 92 (80-110) mg/dL Calcium 9.6 (8.4-10.2) mg/dL Magnesium 2.1 (1.6-2.3) mg/dL Total Bilirubin 0.7 (0.2-1.3) mg/dL AST 37 H (14-36) IU/L ALT 36 H (<35) IU/L Alkaline Phosphatase 117 (38-126) U/L Total Creatine Kinase 180 H (30-135) U/L Troponin I < 0.012 (0.01-0.034) ng/mL NT-Pro-B Natriuret Pep 2510 H (<450) pg/mL Total Protein 6.9 (6.3-8.2) g/dL Albumin 3.8 (3.5-5.0) g/dL Globulin 3.1 (1.7-4.1) g/dL Albumin/Globulin Ratio 1.2 (1.0-2.8) TSH 0.064 L (0.47-4.68) uIU/mL Urine RBC 0-1/hpf (0-5/HPF) Urine WBC 1-5/hpf (0-5/HPF) Ur Squamous Epith Cells 5-10 /hpf H (0-5/HPF) Urine Bacteria Few (2-10) H (None) Ur Culture Indicated? Specimen cultured SARS-CoV-2 (PCR) (Negative) 06/17/23 Range/Units 17:20 WBC (4.5-11.0) X10^3/uL RBC (4.0-5.2) X10^6/uL Hgb (12.0-16.0) g/dL Hct (36-46) % MCV (80-100) fL MCH (26-34) PG MCHC (30-36) % RDW (11.6-14.8) % Plt Count (150-400) X10^3/uL Neut % (Auto) (50-75) % Lymph % (Auto) (25-40) % [place] % (Auto) (3-14) % Eos % (Auto) (2-4) % Baso % (Auto) (0-2) % Neut # (Auto) (4503-6109) /uL Lymph # (Auto) (1368-6322) /uL [place] # (Auto) (0-900) /uL Eos # (Auto) (0-450) /uL Baso # (Auto) (0-100) /uL PT (10.1-12.7) SECONDS INR (0.9-1.3) APTT (26-36) SECONDS D-Dimer (<500) ng/ml Sodium (137-145) mmol/L Potassium (3.4-5.1) mmol/L Chloride (98-107) mmol/L Carbon Dioxide (22-32) mmol/L BUN (7-17) mg/dL Creatinine (0.52-1.04) mg/dL Estimated GFR (>60) mL/min BUN/Creatinine Ratio (6-22) Glucose (80-110) mg/dL Calcium (8.4-10.2) mg/dL Magnesium (1.6-2.3) mg/dL Total Bilirubin (0.2-1.3) mg/dL AST (14-36) IU/L ALT (<35) IU/L Alkaline Phosphatase (38-126) U/L Total Creatine Kinase (30-135) U/L Troponin I (0.01-0.034) ng/mL NT-Pro-B Natriuret Pep (<450) pg/mL Total Protein (6.3-8.2) g/dL Albumin (3.5-5.0) g/dL Globulin (1.7-4.1) g/dL Albumin/Globulin Ratio (1.0-2.8) TSH (0.47-4.68) uIU/mL Urine RBC (0-5/HPF) Urine WBC (0-5/HPF) Ur Squamous Epith Cells (0-5/HPF) Urine Bacteria (None) Ur Culture Indicated? SARS-CoV-2 (PCR) Negative (Negative) Urine Dip Bedside Urine Glucose Negative Bedside Urine Bilirubin - Negative Bedside Urine Ketone - Negative Urine Specific [place] 1.015 Bedside Urine Occult Blood - Negative Bedside Urine pH 6.0 Bedside Urine Protein +/- 15 Bedside Urine Urobilinogen - Negative Bedside Urine Nitrite - Negative Bedside Urine Leukocytes + 70 Esterase MDM Narrative Medical decision making narrative: [88] year old patient presents with persistent tachycardia with increasing carl rtness of breath and exertional fatigue for upwards of 3 weeks Multiple etiologies for patient's symptoms considered including, but not limited to: [Sinus tachycardia versus atrial fibrillation versus atrial flutter versus pulmonary embolism versus other] Prior Charts reviewed in our EMR Primary Historian: patient Labs reviewed and interpreted by myself: No leukocytosis or left shift, no significant anemia, D-dimer 1910, electrolytes within normal, BNP 2510, troponin less than 0.012 Imaging reviewed: CT angiogram performed given critical dimer, tachycardia, no evidence of PE though there is evidence of ground-glass opacities Consultations: Discussed with on-call Cardiology, sure the opinion that patient has atrial flutter, needs DOAC, rate control, admission, echo. DIscussed with hospitalist Discharge Plan Departure Patient Disposition: Admitted as Observation Clinical Impression: Atrial flutter, Acute CHF
[2023-06-17 13:31] LABS: Add Manual Diff / Slide Review NO; Basophils Absolute Auto 0 /uL (0-100); Basophils Percent Auto 0.6 % (0-2); Eosinophils Absolute Auto 100 /uL (0-450); Eosinophils Percent Auto 1.9 % (2-4); Hematocrit 35.8 % (36-46); Hemoglobin 11.9 g/dL (12.0-16.0); Lymphocytes Absolute Auto 1500 /uL (1100-4500); Lymphocytes Percent Auto 24.7 % (25-40); Mean Corpuscular HGB Conc 33.4 % (30-36); Mean Corpuscular Hemoglobin 29.1 PG (26-34); Mean Corpuscular Volume 87.1 fL (80-100); Monocytes Absolute Auto 600 /uL (0-900); Monocytes Percent Auto 10.7 % (3-14); Neutrophils Absolute Auto 3700 /uL (1500-7000); Neutrophils Percent Auto 62.1 % (50-75); Platelet Count 297 X10^3/uL (150-400); Red Blood Cell Count 4.11 X10^6/uL (4.0-5.2); Red Cell Distribution Width 14.7 % (11.6-14.8)
[2023-06-17 13:41] LABS: INR 1.2 (0.9-1.3); Prothrombin Time 13.3 SECONDS (10.1-12.7)
[2023-06-17 13:43] LABS: PTT Partial Thromboplastin Tim 31 SECONDS (26-36)
[2023-06-17 13:44] LABS: D Dimer 1910 ng/ml (<500)
[2023-06-17 13:45] LABS: Alanine Aminotransferase 36 IU/L (<35); Albumin 3.8 g/dL (3.5-5.0); Albumin Globulin Ratio 1.2 (1.0-2.8); Alkaline Phosphatase 117 U/L (38-126); Aspartate Aminotransferase 37 IU/L (14-36); BUN Creatinine Ratio 13.2 (6-22); Bilirubin Total 0.7 mg/dL (0.2-1.3); Blood Urea Nitrogen 9 mg/dL (7-17); Calcium 9.6 mg/dL (8.4-10.2); Carbon Dioxide 26 mmol/L (22-32); Chloride 106 mmol/L (98-107); Creatine Kinase 180 U/L (30-135); Estimated Glomerular Filt Rate > 60 mL/min (>60); Globulin 3.1 g/dL (1.7-4.1); Glucose 92 mg/dL (80-110); HEMOLYSIS < 15 (0-50); Magnesium 2.1 mg/dL (1.6-2.3); Potassium 3.9 mmol/L (3.4-5.1); Sodium 139 mmol/L (137-145); Total Protein 6.9 g/dL (6.3-8.2)
--- NOTE | 2023-06-17 13:58 | DI.CT.S_ITS ---
PROCEDURE: CT ANGIO CHEST PE PROTOCOL INDICATIONS: tachycardia, SOB, pain, critical dimer, long distance travel TECHNIQUE: After the administration of intravenous contrast, 2 mm thick sections acquired from the pulmonary apices to the posterior costophrenic angles. 3-dimensional maximum intensity projection (MIP) coronal and sagittal reformats were then acquired through the thorax. For radiation dose reduction, the following was used: automated exposure control, adjustment of mA and/or kV according to patient size. COMPARISON: None. FINDINGS: Image quality: Excellent. Pulmonary arteries: Pulmonary arteries are normal in size, and demonstrate no intraluminal filling defects to suggest central pulmonary embolism. Lungs and pleura: Mild scattered areas of ground-glass opacity can be seen. There is a mild degree of subpleural fibrotic change seen, which is worst within the lower lobes. Mediastinum: Heart size is normal, without pericardial effusion. No mediastinal or hilar adenopathy. At least 1 calcified mediastinal lymph node is seen. Thoracic aorta is normal in caliber and enhancement. Esophagus is normal in caliber, without hiatal hernia. Bones and chest wall: No suspicious bony lesions. Ribs and thoracic spine appear intact throughout. Accentuated thoracic kyphosis is seen. Age-appropriate bony degenerative changes are seen. Thyroid gland is enlarged, with a 1.5 cm right thyroid nodule seen. No axillary or supraclavicular adenopathy. Abdomen: Calcified granulomas can be seen within the spleen and within the liver. The visualized portions of the upper abdominal structures are otherwise unremarkable for imaging technique. IMPRESSION: Negative for pulmonary embolism. Mild scattered ground-glass opacity can be seen. Please consider mild pulmonary edema. Enlarged thyroid noted, with a 1.5 cm right thyroid nodule. When clinically appropriate, please consider a follow-up thyroid ultrasound for further evaluation. Mild subpleural fibrotic change can be seen. Additional findings: Prior granulomatous exposure. Dictated by: Jonathan Cobb M.D. on 06/17/2023 at 15:12 Approved by: Jonathan Cobb M.D. on 06/17/2023 at 15:14
[2023-06-17] MEDS: SODIUM CHLORIDE 0.9% 500 ML 1000 ML IV (14:30)
[2023-06-17 15:13] LABS: NT-proBNP (BNP-Adult 18+) 2510 pg/mL (<450); Troponin I < 0.012 ng/mL (0.01-0.034)
[2023-06-17 17:40] LABS: COVID19 -Nasal RAPID Negative (Negative)
[2023-06-17 17:44] LABS: Bacteria Urine Few (2-10); Culture Indicated Urine Specimen Cultured; RBC Urine 0-1/HPF (0-5/HPF); Squamous Epithelial Cell Urine 5-10 /HPF (0-5/HPF); WBC Urine 1-5/HPF (0-5/HPF)
[2023-06-17 18:13] LABS: Thyroid Stimulating Hormone 0.064 uIU/mL (0.47-4.68)
[2023-06-17] MEDS: FUROSEMIDE 40 MG/4 ML VIAL IV (19:00)
[2023-06-17] MEDS: METOPROLOL TARTRATE 5 MG/5 ML INJ IV (19:00)
[2023-06-17] MEDS: APIXABAN 5 MG TABLET PO (19:42)
[2023-06-17] MEDS: METOPROLOL IR 25 MG TABLET PO ×2 (19:44→23:45)
--- NOTE | 2023-06-17 20:09 | DI.ECHO.S_ITS ---
[facility] +---------+ : : [address] : : : : [id number] : : : : Phone: [phone]+ Echocardiogram Report + + :Name: DEANDRE POWELL Study Date: 06/18/2023 Height: 66 in : :[facility] ReadingLocation: Weight: 165 lb : : Gender: Female BSA: 1.8 m2 : :: 1935 Age: 88 yrs BP: 109/79 mmHg: :Reason For Study: Atrial Flutter : :Ordering Physician: Michael, : :Jeff Performed By: Mari Andrea : :Referring: Jeff Rodriguez : + + Interpretation Summary The left ventricle is normal in size. Left ventricular systolic function appears normal without focal wall motion abnormalities. The ejection fraction is estimated to be 55-60%. The right ventricle is normal in size and function. The right ventricular systolic pressure is estimated to be at least 42 mmHg based on an estimated right atrial pressure of 15 mm Hg. The left atrial size is normal. Right atrial size is normal. There is mild mitral regurgitation. There is mild to moderate tricuspid regurgitation. The aortic root is normal size. Procedure: A two-dimensional transthoracic echocardiogram with color flow and Doppler was performed. The study quality was technically adequate. There is no prior echocardiogram noted for this patient. The patient was in atrial fibrillation with rapid ventricular response during the exam with a heart rate exceeding 100 bpm. Left Ventricle: The left ventricle is normal in size. There is mild asymmetric left ventricular hypertrophy. Left ventricular systolic function appears normal without focal wall motion abnormalities. The ejection fraction is estimated to be 55-60%. Diastolic function could not be accurately assessed due to atrial fibrillation. Right Ventricle: The right ventricle is normal in size and function. Atria: The left atrial size is normal. Right atrial size is normal. There is no Doppler evidence for an interatrial shunt. Mitral Valve: The mitral valve leaflets appear mildly thickened, but open well. There is no mitral valve stenosis. There is mild mitral regurgitation. Aortic Valve: The aortic valve is trileaflet. The aortic valve opens well. There is mild aortic valve sclerosis. There is no aortic valve stenosis. There is trace aortic regurgitation. Tricuspid Valve: The tricuspid valve is normal. There is no tricuspid stenosis. There is mild to moderate tricuspid regurgitation. The right ventricular systolic pressure is estimated to be at least 42 mmHg based on an estimated right atrial pressure of 15 mm Hg. Pulmonic Valve: The pulmonic valve leaflets are thin and pliable; valve motion is normal. There is no pulmonic valvular stenosis. There is mild pulmonic regurgitation. Great Vessels: The aortic root is normal size. The ascending aorta is normal in size. The pulmonary artery is normal size. The IVC is dilated (diameter is greater than 2.1 cm) and it collapses less than 50% with a sniff. This suggests a high right atrial pressure of 15 mm Hg. The IVC has a measurement of 31 mm. Pericardium/ Pleura There is no pericardial effusion. There is no pleural effusion. MMode/2D Measurements & Calculations LVIDd: 4.4 cm LVOT diam: 1.8 cm LVIDs: 3.0 cm Ao root diam: 3.1 cm FS: 31.8 % asc Aorta Diam: 3.4 cm IVSd: 1.0 cm LVPWd: 1.3 cm LV king. diameter/BSA (cm/m^2): 2.4 LV sys. diameter/BSA (cm/m^2): 1.6 LA A2 area: 14.1 cm2 RA long axis: 5.5 cm LA A4 area: 19.0 cm2 RA area: 16.4 cm2 LA length (vol): 4.7 cm RA vol: 41.4 ml LA vol: 48.1 ml RA : 22.5 ml/m2 LA vol index: 26.1 ml/m2 RVD1 (basal): 3.7 cm LVLs ap4: 4.8 cm LVLd ap2: 6.3 cm LVLs ap2: 5.3 cm Doppler Measurements & Calculations TR max cecilia: 243.5 cm/sec TR max P.2 mmHg Reading Physician:02:29 PM
[2023-06-17 20:34] LABS: Magnesium 2.2 mg/dL (1.6-2.3)
[2023-06-17 20:54] LABS: Free T4, Direct Thyroxine 1.35 ng/dL (0.78-2.19); T4 Total Thyroxine 8.34 ug/dL (5.5-11.0)
--- NOTE | 2023-06-17 23:22 | PM.HP.1 ---
History of Present Illness History of Present Illness Date Patient Seen: 06/17/23 Chief complaint: STATES TACHICARDIA 138 BPM Narrative: 88 y/o without significant PMH presented to ED with palpitations, episodic dizziness, chest pressure and shortness of breath, that started 2-3 weeks ago. She never had palpitations or chest pain before. She does not take aspirin, BB, CCB or any other prescription medication. 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) Social History household members: none Smoking Status: Former smoker alcohol intake: current Meds Home Medications and Allergies Home Medications Medication Instructions Recorded Confirmed Type loratadine 10 mg tablet 10 mg PO PRN PRN allergies 01/23/23 06/17/23 History Allergies Allergy/AdvReac Type Severity Reaction Status Date / Time Penicillins [PENICILLINS] Allergy Mild Verified 06/17/23 13:04 Review of Systems Constitutional Comments: episodic generalized weakness, no fever or chills Eyes Comments: w/o recent vision changes Cardiovascular Comments: palpitations, chest pressure, shortness of breath, dizziness, lightheadedness Respiratory Comments: w/o cough, wheezing sometimes short of breath Gastrointestinal Comments: w/o complaints Genitourinary Comments: w/o complaints Neurologic Comments: recent [place] palsy, improved, remnant numb area on the Lt side of tongue Psychiatric Comments: not anxious Endocrine Comments: w/o weight gain or loss, cold or heat intolerance Hematologic/Lymphatic Comments: w/o Hx of bleeding or bruising excessively Allergic/Immunologic Comments: has seasonal allergies Exam Vital Signs (past 8 hours): - 06/17/23 15:30 06/17/23 15:30 06/17/23 15:55 Temperature Pulse Rate 132 H 132 H Respiratory Rate 16 22 Blood Pressure 140/95 H Pulse Oximetry 95 97 Oxygen Delivery Method Oxygen Flow Rate 06/17/23 15:55 06/17/23 16:00 06/17/23 16:00 Temperature Pulse Rate 132 H Respiratory Rate 12 Blood Pressure 143/104 H 143/105 H Pulse Oximetry 98 Oxygen Delivery Method Oxygen Flow Rate 06/17/23 16:30 06/17/23 16:30 06/17/23 17:00 Temperature Pulse Rate 130 H Respiratory Rate 14 Blood Pressure 141/93 H 138/92 H Pulse Oximetry 97 Oxygen Delivery Method Oxygen Flow Rate 06/17/23 17:00 06/17/23 17:30 06/17/23 17:30 Temperature Pulse Rate 130 H 130 H Respiratory Rate 15 21 Blood Pressure 134/93 H Pulse Oximetry 97 97 Oxygen Delivery Method Oxygen Flow Rate 06/17/23 18:00 06/17/23 18:00 06/17/23 18:30 Temperature Pulse Rate 131 H Respiratory Rate 18 Blood Pressure 140/103 H 138/93 H Pulse Oximetry 98 Oxygen Delivery Method Oxygen Flow Rate 06/17/23 18:30 06/17/23 19:00 06/17/23 19:00 Temperature Pulse Rate 132 H 132 H Respiratory Rate 10 L 13 Blood Pressure 118/89 Pulse Oximetry 98 97 Oxygen Delivery Method Oxygen Flow Rate 06/17/23 19:16 06/17/23 19:20 06/17/23 19:30 Temperature Pulse Rate 127 H Respiratory Rate 16 Blood Pressure 106/78 129/87 Pulse Oximetry 96 Oxygen Delivery Method Oxygen Flow Rate 06/17/23 19:30 06/17/23 19:53 06/17/23 19:53 Temperature Pulse Rate 129 H 129 H Respiratory Rate 13 22 Blood Pressure 126/89 Pulse Oximetry 97 97 Oxygen Delivery Method Oxygen Flow Rate 06/17/23 20:00 06/17/23 20:00 06/17/23 20:50 Temperature 96.6 F L Pulse Rate 129 H 128 H Respiratory Rate 13 18 Blood Pressure 117/84 109/79 Pulse Oximetry 97 97 Oxygen Delivery Method Oxygen Flow Rate 0 06/17/23 19:57 Temperature Pulse Rate Respiratory Rate Blood Pressure Pulse Oximetry Oxygen Delivery Method Room Air Oxygen Flow Rate Oxygen Delivery Method Room Air Oxygen Flow Rate 0 Const Other: in no distress, appears comfortable HENMT Other: w/o thyromegaly Eyes Other: eomi pupils reactive Neck Other: supple, no swelling Resp Other: CTA, normal respiratory effort Cardio Other: irregularly irregular, w/o JVD GI Other: abdomen not distended Skin Other: w/o rashes or jaundice Neuro Other: w/o deficits, w/o facial droop Extrem Other: 1 + b/l LE edema Psych Other: normal modd, lucid Objective ECG Impression: flutter Labs 06/17/23 13:21 06/17/23 13:21 Labs: Laboratory Results - last 24 hr 06/17/23 06/17/23 06/17/23 13:21 13:21 13:21 WBC 6.0 RBC 4.11 Hgb 11.9 L Hct 35.8 L MCV 87.1 MCH 29.1 MCHC 33.4 RDW 14.7 Plt Count 297 Neut % (Auto) 62.1 Lymph % (Auto) 24.7 L [place] % (Auto) 10.7 Eos % (Auto) 1.9 L Baso % (Auto) 0.6 Neut # (Auto) 3700 Lymph # (Auto) 1500 [place] # (Auto) 600 Eos # (Auto) 100 Baso # (Auto) 0 PT 13.3 H INR 1.2 APTT 31 D-Dimer 1910 H Sodium Potassium Chloride Carbon Dioxide BUN Creatinine Estimated GFR BUN/Creatinine Ratio Glucose Calcium Magnesium Total Bilirubin AST ALT Alkaline Phosphatase Total Creatine Kinase Troponin I NT-Pro-B Natriuret Pep Total Protein Albumin Globulin Albumin/Globulin Ratio TSH Free T4 Thyroxine (T4) Urine RBC Urine WBC Ur Squamous Epith Cells Urine Bacteria Ur Culture Indicated? SARS-CoV-2 (PCR) 06/17/23 06/17/23 06/17/23 13:21 13:21 13:21 WBC RBC Hgb Hct MCV MCH MCHC RDW Plt Count Neut % (Auto) Lymph % (Auto) [place] % (Auto) Eos % (Auto) Baso % (Auto) Neut # (Auto) Lymph # (Auto) [place] # (Auto) Eos # (Auto) Baso # (Auto) PT INR APTT D-Dimer Sodium 139 Potassium 3.9 Chloride 106 Carbon Dioxide 26 BUN 9 Creatinine 0.68 Estimated GFR > 60 BUN/Creatinine Ratio 13.2 Glucose 92 Calcium 9.6 Magnesium 2.1 2.2 Total Bilirubin 0.7 AST 37 H ALT 36 H Alkaline Phosphatase 117 Total Creatine Kinase 180 H Troponin I < 0.012 NT-Pro-B Natriuret Pep 2510 H Total Protein 6.9 Albumin 3.8 Globulin 3.1 Albumin/Globulin Ratio 1.2 TSH 0.064 L Free T4 Thyroxine (T4) Urine RBC Urine WBC Ur Squamous Epith Cells Urine Bacteria Ur Culture Indicated? SARS-CoV-2 (PCR) 06/17/23 06/17/23 06/17/23 13:21 16:35 17:20 WBC RBC Hgb Hct MCV MCH MCHC RDW Plt Count Neut % (Auto) Lymph % (Auto) [place] % (Auto) Eos % (Auto) Baso % (Auto) Neut # (Auto) Lymph # (Auto) [place] # (Auto) Eos # (Auto) Baso # (Auto) PT INR APTT D-Dimer Sodium Potassium Chloride Carbon Dioxide BUN Creatinine Estimated GFR BUN/Creatinine Ratio Glucose Calcium Magnesium Total Bilirubin AST ALT Alkaline Phosphatase Total Creatine Kinase Troponin I NT-Pro-B Natriuret Pep Total Protein Albumin Globulin Albumin/Globulin Ratio TSH Free T4 1.35 Thyroxine (T4) 8.34 Urine RBC 0-1/hpf Urine WBC 1-5/hpf Ur Squamous Epith Cells 5-10 /hpf H Urine Bacteria Few (2-10) H Ur Culture Indicated? Specimen cultured SARS-CoV-2 (PCR) Negative Assessment & Plan Assessment and plan (1) Atrial flutter: Status: Acute Plan: Admitted on telemetry. BB scheduled and prn CCB Started Eliquis Echocardiogram pending No clots seen on CTA Cardiology consultation (2) Acute CHF: Status: Acute Plan: given dose of Lasix in ED Mild fluid overload - minimal LE swelling and pulmonary congestion BMP pending (3) Thyroid nodule: Status: Acute Plan: Thyroid US TSH low, checked T4 - WNR, T3 pending. Hyperthyroid? (4) Seasonal allergies: Status: Acute Plan: not active, takes claritin (5) Loving's palsy: Status: Acute Plan: recent, remnant patchy numbness on the tounge Quality VTE Deep Vein Thrombosis/Pulmonary Embolism Present on Admission: No
[2023-06-18 00:04] VITALS: BP 100/60; PULSE 68; RESP 16; TEMP 36.4; O2SAT 94
[2023-06-18 04:05] VITALS: BP 107/67; PULSE 66; RESP 16; TEMP 36; O2SAT 100
[2023-06-18] MEDS: METOPROLOL IR 25 MG TABLET PO (05:07)
--- NOTE | 2023-06-18 07:27 | PM.PN.1 ---
Exam Vital Signs (past 8 hours): - 06/18/23 00:04 06/18/23 04:05 Temperature 97.5 F L 96.8 F L Pulse Rate 68 66 Respiratory Rate 16 16 Blood Pressure 100/60 107/67 Pulse Oximetry 94 100 Oxygen Flow Rate 0 0 Oxygen Delivery Method Room Air Oxygen Flow Rate 0 Objective Labs 06/17/23 13:21 06/17/23 13:21 Labs: Laboratory Results - last 24 hr 06/17/23 06/17/23 06/17/23 13:21 13:21 13:21 WBC 6.0 RBC 4.11 Hgb 11.9 L Hct 35.8 L MCV 87.1 MCH 29.1 MCHC 33.4 RDW 14.7 Plt Count 297 Neut % (Auto) 62.1 Lymph % (Auto) 24.7 L [place] % (Auto) 10.7 Eos % (Auto) 1.9 L Baso % (Auto) 0.6 Neut # (Auto) 3700 Lymph # (Auto) 1500 [place] # (Auto) 600 Eos # (Auto) 100 Baso # (Auto) 0 PT 13.3 H INR 1.2 APTT 31 D-Dimer 1910 H Sodium Potassium Chloride Carbon Dioxide BUN Creatinine Estimated GFR BUN/Creatinine Ratio Glucose Calcium Magnesium Total Bilirubin AST ALT Alkaline Phosphatase Total Creatine Kinase Troponin I NT-Pro-B Natriuret Pep Total Protein Albumin Globulin Albumin/Globulin Ratio TSH Free T4 Thyroxine (T4) Urine RBC Urine WBC Ur Squamous Epith Cells Urine Bacteria Ur Culture Indicated? SARS-CoV-2 (PCR) 06/17/23 06/17/23 06/17/23 13:21 13:21 13:21 WBC RBC Hgb Hct MCV MCH MCHC RDW Plt Count Neut % (Auto) Lymph % (Auto) [place] % (Auto) Eos % (Auto) Baso % (Auto) Neut # (Auto) Lymph # (Auto) [place] # (Auto) Eos # (Auto) Baso # (Auto) PT INR APTT D-Dimer Sodium 139 Potassium 3.9 Chloride 106 Carbon Dioxide 26 BUN 9 Creatinine 0.68 Estimated GFR > 60 BUN/Creatinine Ratio 13.2 Glucose 92 Calcium 9.6 Magnesium 2.1 2.2 Total Bilirubin 0.7 AST 37 H ALT 36 H Alkaline Phosphatase 117 Total Creatine Kinase 180 H Troponin I < 0.012 NT-Pro-B Natriuret Pep 2510 H Total Protein 6.9 Albumin 3.8 Globulin 3.1 Albumin/Globulin Ratio 1.2 TSH 0.064 L Free T4 Thyroxine (T4) Urine RBC Urine WBC Ur Squamous Epith Cells Urine Bacteria Ur Culture Indicated? SARS-CoV-2 (PCR) 06/17/23 06/17/23 06/17/23 13:21 16:35 17:20 WBC RBC Hgb Hct MCV MCH MCHC RDW Plt Count Neut % (Auto) Lymph % (Auto) [place] % (Auto) Eos % (Auto) Baso % (Auto) Neut # (Auto) Lymph # (Auto) [place] # (Auto) Eos # (Auto) Baso # (Auto) PT INR APTT D-Dimer Sodium Potassium Chloride Carbon Dioxide BUN Creatinine Estimated GFR BUN/Creatinine Ratio Glucose Calcium Magnesium Total Bilirubin AST ALT Alkaline Phosphatase Total Creatine Kinase Troponin I NT-Pro-B Natriuret Pep Total Protein Albumin Globulin Albumin/Globulin Ratio TSH Free T4 1.35 Thyroxine (T4) 8.34 Urine RBC 0-1/hpf Urine WBC 1-5/hpf Ur Squamous Epith Cells 5-10 /hpf H Urine Bacteria Few (2-10) H Ur Culture Indicated? 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
[2023-06-18 08:00] VITALS: BP 94/61; PULSE 117; RESP 17; TEMP 36.2; O2SAT 96
--- NOTE | 2023-06-18 08:41 | PC.NURSE ---
Pt alert and oriented, offers no overt complaint, states comfort, doesn't hear pulse in her neck. Awaiting echo.
[2023-06-18] MEDS: APIXABAN 5 MG TABLET PO (09:16)
--- NOTE | 2023-06-18 09:21 | CM.DANOTE ---
Initial DCP Assessment Note Pt is an 88 yo female, resident of [place], presents with chest pressure and shortness of breath, admitted for observation on telemetry and management of Atrial flutter PCP: Malini Ledesma Payer: TRAM/Devin Liu Reviewed chart, met w/patient to introduce self and role. Patient lives alone, indp and active at baseline. Patient has two daughters that live in [place], lists daughter Patti Bocanegra P [phone] as her NOK contact. Patient expects to return home w/friend to transport, denies needs from this TRAINING ENGINEER. No barriers identified at this time to patient's safe discharge home w/family to assist; close outpatient f/u recommended. CM team will plan to follow closely in case any DC needs or concerns arise. MAITE Mehta Discharge Planning/Care Management CM Discharge Assessment Start: 06/18/23 09:18 Freq: Status: Active Protocol: Document 06/18/23 09:19 ANIKA (Rec: 06/18/23 09:21 [id number]) Discharge Planning Assessment Assigned Remelt Operator MAITE Woodward DPOA/Assigned Designee Name Patti Bocanegra, daughter ( [place]) Contact Information [phone] Advance Directives? Yes Advance Directives on File No History Provided By Patient,Medical Record Prior Living Arrangements House Household Members none Type of transportation used prior to Drives own vehicle admit Independent with ADL's Yes Is patient alert and oriented? Yes Comment No AD Comment None needed Barriers to Discharge No Comment Home w/friend to transport Discharge Plan Home Transportation Arrangement Friend Referrals Initiated None needed
[2023-06-18 10:23] LABS: Add Manual Diff / Slide Review NO; Basophils Absolute Auto 0 /uL (0-100); Basophils Percent Auto 0.6 % (0-2); Eosinophils Absolute Auto 100 /uL (0-450); Eosinophils Percent Auto 2.9 % (2-4); Hematocrit 34.8 % (36-46); Hemoglobin 11.7 g/dL (12.0-16.0); Lymphocytes Absolute Auto 1100 /uL (1100-4500); Lymphocytes Percent Auto 22.7 % (25-40); Mean Corpuscular HGB Conc 33.6 % (30-36); Mean Corpuscular Hemoglobin 29.3 PG (26-34); Mean Corpuscular Volume 87.4 fL (80-100); Monocytes Absolute Auto 500 /uL (0-900); Monocytes Percent Auto 10.8 % (3-14); Neutrophils Absolute Auto 3100 /uL (1500-7000); Platelet Count 287 X10^3/uL (150-400); Red Blood Cell Count 3.98 X10^6/uL (4.0-5.2); Red Cell Distribution Width 14.8 % (11.6-14.8)
[2023-06-18 10:33] LABS: Alanine Aminotransferase 30 IU/L (<35); Albumin 3.5 g/dL (3.5-5.0); Albumin Globulin Ratio 1.2 (1.0-2.8); Alkaline Phosphatase 97 U/L (38-126); Aspartate Aminotransferase 29 IU/L (14-36); BUN Creatinine Ratio 18.3 (6-22); Bilirubin Total 0.6 mg/dL (0.2-1.3); Blood Urea Nitrogen 11 mg/dL (7-17); Calcium 9.2 mg/dL (8.4-10.2); Carbon Dioxide 25 mmol/L (22-32); Chloride 105 mmol/L (98-107); Estimated Glomerular Filt Rate > 60 mL/min (>60); Globulin 2.9 g/dL (1.7-4.1); Glucose 97 mg/dL (80-110); HEMOLYSIS < 15 (0-50); Potassium 4.2 mmol/L (3.4-5.1); Sodium 137 mmol/L (137-145); Total Protein 6.4 g/dL (6.3-8.2)
[2023-06-18 10:38] LABS: NT-proBNP (BNP-Adult 18+) 2610 pg/mL (<450)
--- NOTE | 2023-06-18 13:35 | PM.DS.1 ---
History of Present Illness History of Present Illness Date Patient Seen: 06/17/23 Chief complaint: STATES TACHICARDIA 138 BPM Narrative: 88 y/o without significant PMH presented to ED with palpitations, episodic dizziness, chest pressure and shortness of breath, that started 2-3 weeks ago. She never had palpitations or chest pain before. She does not take aspirin, BB, CCB or any other prescription medication. Discharge Providers Provider Date of admission: 06/17/23 19:43 Discharge Date: 06/18/23 Primary care physician: Malini Ledesma MD Discharge provider: Jeff Rodriguez DO Summary Hospital Course Discharge Diagnosis: (1) Atrial flutter: ?Status:?Acute ?Plan: Admitted on telemetry. Started on po metoprolol 25mg tart and after 2 doses HR improved to 60-80's. Discharged on po metop XL 50mg daily Started xarelto due to covered by insurance at $38 for 90 day supply Echocardiogram pending No clots seen on CTA should have outpatient f/up with cardiology for monitoring (2) Acute CHF: ?Status:?Acute ?Plan: given dose of Lasix in ED Mild fluid overload - minimal LE swelling and pulmonary congestion Echo with EF 55-60% and mild-mod TR with RVSP 42 (3) Thyroid nodule: ?Status:?Acute ?Plan: patient notes surveillance thyroid US's in past TSH low at 0.064, T4 normal, T3 pending. possible subclinical hyperthyroidism, should have outpateint f/u for thyroid US and possible treatment (4) Seasonal allergies: ?Status:?Acute ?Plan: not active, takes claritin (5) Loving's palsy: ?Status:?Acute ?Plan: recent, remnant patchy numbness on the tongue Hospital Course: Admitted for new-onset A-flutter. Responded well to po metoprolol and HR improved from 130's to 80's. Placed on xarelto. Echo reassuring. Will f/up with cardiology as outpatient. Thyroid nodule noted on CTA and TSH low with normal T4. Suggest possible subclinical hyperthyroidism so should have further outpatient workup. Patient has appt with her PCP next week. Exam Vital Signs (past 8 hours): - 06/18/23 08:00 Temperature 97.1 F L Pulse Rate 117 H Respiratory Rate 17 Blood Pressure 94/61 Pulse Oximetry 96 Oxygen Flow Rate 0 Oxygen Delivery Method Room Air Oxygen Flow Rate 0 Const Other: in no distress, appears comfortable HENMT Other: w/o thyromegaly Eyes Other: eomi pupils reactive Neck Other: supple, no swelling Resp Other: CTA, normal respiratory effort Cardio Other: irregularly irregular, w/o JVD GI Other: abdomen not distended Skin Other: w/o rashes or jaundice Neuro Other: w/o deficits, w/o facial droop Extrem Other: 1 + b/l LE edema Psych Other: normal modd, lucid Objective Labs 06/18/23 09:43 06/18/23 09:43 Labs: Laboratory Results - last 24 hr 06/17/23 06/17/23 06/17/23 13:21 13:21 13:21 WBC RBC Hgb Hct MCV MCH MCHC RDW Plt Count Neut % (Auto) Lymph % (Auto) [place] % (Auto) Eos % (Auto) Baso % (Auto) Neut # (Auto) Lymph # (Auto) [place] # (Auto) Eos # (Auto) Baso # (Auto) PT 13.3 H INR 1.2 APTT 31 D-Dimer 1910 H Sodium 139 Potassium 3.9 Chloride 106 Carbon Dioxide 26 BUN 9 Creatinine 0.68 Estimated GFR > 60 BUN/Creatinine Ratio 13.2 Glucose 92 Calcium 9.6 Magnesium 2.1 Total Bilirubin 0.7 AST 37 H ALT 36 H Alkaline Phosphatase 117 Total Creatine Kinase 180 H Troponin I < 0.012 NT-Pro-B Natriuret Pep 2510 H Total Protein 6.9 Albumin 3.8 Globulin 3.1 Albumin/Globulin Ratio 1.2 TSH Free T4 Thyroxine (T4) Urine RBC Urine WBC Ur Squamous Epith Cells Urine Bacteria Ur Culture Indicated? SARS-CoV-2 (PCR) 06/17/23 06/17/23 06/17/23 13:21 13:21 13:21 WBC RBC Hgb Hct MCV MCH MCHC RDW Plt Count Neut % (Auto) Lymph % (Auto) [place] % (Auto) Eos % (Auto) Baso % (Auto) Neut # (Auto) Lymph # (Auto) [place] # (Auto) Eos # (Auto) Baso # (Auto) PT INR APTT D-Dimer Sodium Potassium Chloride Carbon Dioxide BUN Creatinine Estimated GFR BUN/Creatinine Ratio Glucose Calcium Magnesium 2.2 Total Bilirubin AST ALT Alkaline Phosphatase Total Creatine Kinase Troponin I NT-Pro-B Natriuret Pep Total Protein Albumin Globulin Albumin/Globulin Ratio TSH 0.064 L Free T4 1.35 Thyroxine (T4) 8.34 Urine RBC Urine WBC Ur Squamous Epith Cells Urine Bacteria Ur Culture Indicated? SARS-CoV-2 (PCR) 06/17/23 06/17/23 06/18/23 16:35 17:20 09:43 WBC 5.0 RBC 3.98 L Hgb 11.7 L Hct 34.8 L MCV 87.4 MCH 29.3 MCHC 33.6 RDW 14.8 Plt Count 287 Neut % (Auto) 63.0 Lymph % (Auto) 22.7 L [place] % (Auto) 10.8 Eos % (Auto) 2.9 Baso % (Auto) 0.6 Neut # (Auto) 3100 Lymph # (Auto) 1100 [place] # (Auto) 500 Eos # (Auto) 100 Baso # (Auto) 0 PT INR APTT D-Dimer Sodium Potassium Chloride Carbon Dioxide BUN Creatinine Estimated GFR BUN/Creatinine Ratio Glucose Calcium Magnesium Total Bilirubin AST ALT Alkaline Phosphatase Total Creatine Kinase Troponin I NT-Pro-B Natriuret Pep Total Protein Albumin Globulin Albumin/Globulin Ratio TSH Free T4 Thyroxine (T4) Urine RBC 0-1/hpf Urine WBC 1-5/hpf Ur Squamous Epith Cells 5-10 /hpf H Urine Bacteria Few (2-10) H Ur Culture Indicated? Specimen cultured SARS-CoV-2 (PCR) Negative 06/18/23 09:43 WBC RBC Hgb Hct MCV MCH MCHC RDW Plt Count Neut % (Auto) Lymph % (Auto) [place] % (Auto) Eos % (Auto) Baso % (Auto) Neut # (Auto) Lymph # (Auto) [place] # (Auto) Eos # (Auto) Baso # (Auto) PT INR APTT D-Dimer Sodium 137 Potassium 4.2 Chloride 105 Carbon Dioxide 25 BUN 11 Creatinine 0.60 Estimated GFR > 60 BUN/Creatinine Ratio 18.3 Glucose 97 Calcium 9.2 Magnesium Total Bilirubin 0.6 AST 29 ALT 30 Alkaline Phosphatase 97 Total Creatine Kinase Troponin I NT-Pro-B Natriuret Pep 2610 H Total Protein 6.4 Albumin 3.5 Globulin 2.9 Albumin/Globulin Ratio 1.2 TSH Free T4 Thyroxine (T4) Urine RBC Urine WBC Ur Squamous Epith Cells Urine Bacteria Ur Culture Indicated? 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 Thankfully it was easily controlled with metoprolol. You will now be on daily metoprolol succinate or XL as well as xarelto to prevent strokes. Your heart echo was reassuring. Discharge orders & Medications Prescriptions: New metoprolol succinate 50 mg tablet extended release 24 hr 50 mg PO DAILY Qty: 30 0RF Xarelto 20 mg tablet 20 mg PO QPM Qty: 90 0RF Rx Instructions: must administer with evening meal metoprolol tartrate 25 mg tablet 25 mg PO PRN PRN (Reason: palpitations) Qty: 30 0RF Continued loratadine 10 mg tablet 10 mg PO PRN PRN (Reason: allergies) Follow up/Referrals: Malini Ledesma MD [Primary Care Provider] - 2 Weeks Visit Report/Discharge Packet Instructions: DI for Atrial Fibrillation, Rivaroxaban, Metoprolol Stand Alone Forms: Patient Portal/API, Stroke Signs & Symptoms Discharge Data Primary Care Provider: Malini Ledesma Quality VTE Deep Vein Thrombosis/Pulmonary Embolism Present on Admission: No
[2023-06-19 23:23] LABS: Triiodothyronine T3 Total 105 ng/dL (71-180)
== END 2023-06-18 14:30 | disposition home or self-care (01) ==
LOC: ED 19:43 → AC 06-18 07:56
PROVIDERS: Admitting Provider Internal Medicine; Emergency Provider Emergency Medicine; Family Provider Internal Medicine; PCP Internal Medicine; Referring Provider Emergency Medicine; Visit Provider Internal Medicine
DX: I48.92 Unspecified atrial flutter (principal); I50.9 Heart failure, unspecified; E04.1 Nontoxic single thyroid nodule; J30.2 Other seasonal allergic rhinitis; G51.0 Bell's palsy; Z20.822 Contact with and (suspected) exposure to COVID-19
CPT/HCPCS: 36415; 71275; 80053; 81003; 81015; 82550; 83735; 83880; 84436; 84439; 84443; 84480; 84484; 85025; 85379; 85610; 85730; 87086; 87635; 93005; 93306; 96374; 96375; 99284; C9803; G0378; J1940; Q9967

== ENCOUNTER 2023-06-19 20:32 | Emergency (ER) | payer MEDICARE, OTHER, SELFPAY ==
[2023-06-17 20:57] VITALS: BMI 26.8
[2023-06-19 20:35] VITALS: BP 143/95; PULSE 131; RESP 18; TEMP 36.2; O2SAT 99; BMI 26.6
--- NOTE | 2023-06-19 20:39 | DI.RAD.S_ITS ---
PROCEDURE: XR CHEST 1V INDICATIONS: chest pain TECHNIQUE: One view of the chest was acquired. COMPARISON: None. FINDINGS: Surgical changes and devices: None. Lungs and pleura: Lungs are clear. No pleural effusions or pneumothorax. Mediastinum: Mediastinal contours appear normal. Heart size is normal. Bones and chest wall: No suspicious bony lesions. Overlying soft tissues appear unremarkable. IMPRESSION: 1. No acute cardiopulmonary disease. Dictated by: Jacob Grace M.D. on 06/19/2023 at 22:29 Approved by: Jacob Grace M.D. on 06/19/2023 at 22:29
[2023-06-19 21:07] LABS: Add Manual Diff / Slide Review NO; Basophils Absolute Auto 100 /uL (0-100); Basophils Percent Auto 1.1 % (0-2); Eosinophils Absolute Auto 100 /uL (0-450); Eosinophils Percent Auto 2.2 % (2-4); Hematocrit 35.9 % (36-46); Lymphocytes Absolute Auto 2000 /uL (1100-4500); Lymphocytes Percent Auto 31.3 % (25-40); Mean Corpuscular HGB Conc 33.4 % (30-36); Mean Corpuscular Hemoglobin 28.9 PG (26-34); Mean Corpuscular Volume 86.6 fL (80-100); Monocytes Absolute Auto 600 /uL (0-900); Monocytes Percent Auto 10.3 % (3-14); Neutrophils Absolute Auto 3400 /uL (1500-7000); Neutrophils Percent Auto 55.1 % (50-75); Platelet Count 314 X10^3/uL (150-400); Red Blood Cell Count 4.14 X10^6/uL (4.0-5.2); Red Cell Distribution Width 14.6 % (11.6-14.8); White Blood Cell Count 6.3 X10^3/uL (4.5-11.0)
[2023-06-19 21:13] LABS: INR 2.9 (0.9-1.3); Prothrombin Time 33.1 SECONDS (10.1-12.7)
[2023-06-19 21:16] LABS: PTT Partial Thromboplastin Tim 43 SECONDS (26-36)
[2023-06-19 21:18] LABS: Alanine Aminotransferase 31 IU/L (<35); Albumin 3.9 g/dL (3.5-5.0); Albumin Globulin Ratio 1.3 (1.0-2.8); Alkaline Phosphatase 107 U/L (38-126); Aspartate Aminotransferase 32 IU/L (14-36); BUN Creatinine Ratio 25.3 (6-22); Bilirubin Total 0.4 mg/dL (0.2-1.3); Blood Urea Nitrogen 19 mg/dL (7-17); Calcium 9.4 mg/dL (8.4-10.2); Carbon Dioxide 23 mmol/L (22-32); Chloride 106 mmol/L (98-107); Creatine Kinase 210 U/L (30-135); Estimated Glomerular Filt Rate > 60 mL/min (>60); Globulin 3.1 g/dL (1.7-4.1); Glucose 100 mg/dL (80-110); HEMOLYSIS < 15 (0-50); Lipase 97 U/L (23-300); Magnesium 2.1 mg/dL (1.6-2.3); Sodium 138 mmol/L (137-145)
[2023-06-19 21:29] LABS: Troponin I < 0.012 ng/mL (0.01-0.034)
[2023-06-20] VITALS (25 sets, daily range): BP systolic 103–131; BP diastolic 61–86; PULSE 61–127; RESP 14–19; O2SAT 94–98; BMI 26.6
--- NOTE | 2023-06-20 00:37 | ED.CHESTPAIN ---
HPI - Chest Pain <Kamla LauDO - Last Filed: 06/21/23 10:44> General Chief Complaint: Chest Pain Stated Complaint: HR 130's, Feels terrible Time Seen by Provider: 06/19/23 21:33 Source: patient, RN notes reviewed and old records reviewed Mode of arrival: Family Vehicle Limitations: no limitations History of Present Illness HPI narrative: 88-year-old female, former smoker, history of Loving's palsy and recent diagnosis of atrial fibrillation started on Xarelto 2 days ago. Patient presents stating she started feeling lightheaded and like her heartbeat was racing this morning. She states no syncope when her heart rate feels fast her chest feels tight and she feels short of breath. When it is slowed here in the department after medication that resolved. Patient states no syncope or passing out. She did not have any diaphoresis. She is no active chest pain or shortness of breath currently. No nausea or vomiting. Had some loose stools since her hospitalization 2 days ago but no black or blood. No urinary symptoms, no frequency or dysuria. No new swelling in extremities. Patient states she did not have any known atrial fibrillation in the past. Was seen here in the hospital received medications had an echo and was started on Xarelto as well as oral metoprolol. Patient states she was feeling fine after her discharge and only started having symptoms this morning. She states her last dose of metoprolol was around 9:00 a.m., she is supposed to take 50 mg once daily as well as Xarelto which she states she is taken for the past 2 days since her discharge. She did take an extra dose of metoprolol which she had been prescribed if she had symptoms earlier today. She states only other medications are prn inhaler and antihistamine. She is had prior foot surgery, D and C's and sinus surgery. No prior cardiac interventions. Allergic to penicillin. Smoked from age [age], was having 1 alcoholic drink daily but stopped after her most recent hospitalization. No illicit. Her primary care is Dr. Cavazos through the [facility]. She has not appointment with Cardiology this upcoming Monday but has not been seen. Related Data Home Medications Medication Instructions Recorded Confirmed loratadine 10 mg tablet 10 mg PO PRN PRN allergies 01/23/23 06/17/23 Previous Rx's Medication Instructions Recorded metoprolol succinate 50 mg 50 mg PO DAILY #30 tabs 06/18/23 tablet,extended release 24 hr metoprolol tartrate 25 mg tablet 25 mg PO PRN PRN palpitations #30 06/18/23 tabs rivaroxaban 20 mg tablet (Xarelto) 20 mg PO QPM #90 tabs 06/18/23 Allergies Allergy/AdvReac Type Severity Reaction Status Date / Time Penicillins [PENICILLINS] Allergy Mild Verified 06/19/23 20:39 Review of Systems <Kamla Lau DO - Last Filed: 06/21/23 10:44> Review of Systems ROS Unobtainable: All systems reviewed & are unremarkable except as noted in HPI and below Patient History <Kamla Lau DO - Last Filed: 06/21/23 10:44> Medical History Loving's palsy Surgical History Status post surgery (10/30/15) Social History household members: none Smoking Status: Former smoker alcohol intake: current Smoking Status: Former smoker alcohol intake frequency: a few times a week Substance Use Type: does not use Exam <Kamla Lau DO - Last Filed: 06/21/23 10:44> Narrative Exam Narrative: GENERAL: Alert and oriented x three, female in distress. HEENT: Head normocephalic, atraumatic, EOMI, pupils reactive, face symmetric, moist mucous membranes NECK: Supple, full range of motion CARDIOVASCULAR: Regularly regular rate and rhythm without murmurs, rubs or gallops. JVD. No swelling bilateral lower extremities. RESPIRATORY: Breath sounds equal bilaterally, no wheezes rales or rhonchi. ABDOMEN: Soft, nontender. Normoactive bowel sounds all 4 quadrants. No guarding or rebound, rigidity, no mass : No CVA tenderness EXTREMITIES: Normal range of motion, no clubbing or edema. Neurovascularly intact NEUROLOGICAL: Cranial nerves II through XII grossly intact. Moving all extremities SKIN: Warm, dry, no petechiae, no rashes or lesions. Initial Vital Signs Initial Vital Signs: Vital Signs Temperature 97.1 F L 06/19/23 20:35 Pulse Rate 131 H 06/19/23 20:35 Respiratory Rate 18 06/19/23 20:35 Blood Pressure 143/95 H 06/19/23 20:35 Pulse Oximetry 99 06/19/23 20:35 Oxygen Delivery Method Room Air 06/19/23 20:35 <Aureliano Day, DO - Last Filed: 06/20/23 10:09> Initial Vital Signs Initial Vital Signs: Vital Signs Temperature 97.1 F L 06/19/23 20:35 Pulse Rate 131 H 06/19/23 20:35 Respiratory Rate 18 06/19/23 20:35 Blood Pressure 143/95 H 06/19/23 20:35 Pulse Oximetry 99 06/19/23 20:35 Oxygen Delivery Method Room Air 06/19/23 20:35 Course <Kamla Lau, DO - Last Filed: 06/21/23 10:44> Orders Ordered: Discontinued Medications Aspirin (Aspirin 81 Mg Chew Tab) 324 mg PO NOW ONE Stop: 06/19/23 20:40 Last Admin: 06/20/23 00:09 Dose: Not Given Documented By: DILTIAZEM (Diltiazem 125 Mg/125 Ml-D5w) 125 mg in 125 mls @ 5 mls/hr IV TITRATE [facility]; Protocol Last Titration: 06/20/23 09:02 Dose: 0 mg/hr, 0 mls/hr Documented By: Titration: 06/20/23 09:00 Dose: 5 mg/hr, 5 mls/hr Documented By: Admin: 06/20/23 02:12 Dose: 5 mg/hr, 5 mls/hr Documented By: Metoprolol Succinate (Metoprolol Er 50 Mg Tablet) 50 mg PO NOW ONE Stop: 06/20/23 07:58 Last Admin: 06/20/23 08:28 Dose: 50 mg Documented By: NL Metoprolol Tartrate (Metoprolol Tartrate 5 Mg/5 Ml Inj) 5 mg IV Q5M [facility] Stop: 06/20/23 00:56 Last Admin: 06/20/23 01:17 Dose: 5 mg Documented By: Admin: 06/20/23 01:03 Dose: 5 mg Documented By: Admin: 06/20/23 00:45 Dose: 5 mg Documented By: Rivaroxaban (Rivaroxaban 10 Mg Tablet) 20 mg PO NOW [facility] Vital Signs Vital signs: Vital Signs - 8 hr 06/20/23 02:15 06/20/23 02:30 06/20/23 02:49 Pulse Rate 121 H 118 H 66 Respiratory Rate 16 16 16 Blood Pressure 103/64 112/67 122/68 Pulse Oximetry 97 97 98 Oxygen Delivery Method Room Air Room Air Room Air 06/20/23 03:00 06/20/23 03:15 06/20/23 03:30 Pulse Rate 64 64 64 Respiratory Rate 16 16 16 Blood Pressure 121/72 108/64 105/63 Pulse Oximetry 97 97 98 Oxygen Delivery Method Room Air Room Air Room Air 06/20/23 04:00 06/20/23 04:30 06/20/23 05:00 Pulse Rate 63 64 61 Respiratory Rate 16 16 19 Blood Pressure 118/61 107/77 107/61 Pulse Oximetry 97 94 94 Oxygen Delivery Method Room Air Room Air Room Air 06/20/23 05:30 06/20/23 06:00 06/20/23 06:30 Pulse Rate 64 64 64 Respiratory Rate 17 16 16 Blood Pressure 108/67 108/61 118/63 Pulse Oximetry 97 95 95 Oxygen Delivery Method Room Air Room Air 06/20/23 07:00 06/20/23 09:55 Pulse Rate 64 82 Respiratory Rate 16 Blood Pressure 108/63 Pulse Oximetry 94 95 Oxygen Delivery Method Room Air <Aureliano Day DO - Last Filed: 06/20/23 10:09> Orders Ordered: Discontinued Medications Aspirin (Aspirin 81 Mg Chew Tab) 324 mg PO NOW ONE Stop: 06/19/23 20:40 Last Admin: 06/20/23 00:09 Dose: Not Given Documented By: DILTIAZEM (Diltiazem 125 Mg/125 Ml-D5w) 125 mg in 125 mls @ 5 mls/hr IV TITRATE [facility]; Protocol Last Titration: 06/20/23 09:02 Dose: 0 mg/hr, 0 mls/hr Documented By: Titration: 06/20/23 09:00 Dose: 5 mg/hr, 5 mls/hr Documented By: Admin: 06/20/23 02:12 Dose: 5 mg/hr, 5 mls/hr Documented By: Metoprolol Succinate (Metoprolol Er 50 Mg Tablet) 50 mg PO NOW ONE Stop: 06/20/23 07:58 Last Admin: 06/20/23 08:28 Dose: 50 mg Documented By: DAR Metoprolol Tartrate (Metoprolol Tartrate 5 Mg/5 Ml Inj) 5 mg IV Q5M [facility] Stop: 06/20/23 00:56 Last Admin: 06/20/23 01:17 Dose: 5 mg Documented By: Admin: 06/20/23 01:03 Dose: 5 mg Documented By: Admin: 06/20/23 00:45 Dose: 5 mg Documented By: Rivaroxaban (Rivaroxaban 10 Mg Tablet) 20 mg PO NOW [facility] Vital Signs Vital signs: Vital Signs - 8 hr 06/20/23 02:15 06/20/23 02:30 06/20/23 02:49 Pulse Rate 121 H 118 H 66 Respiratory Rate 16 16 16 Blood Pressure 103/64 112/67 122/68 Pulse Oximetry 97 97 98 Oxygen Delivery Method Room Air Room Air Room Air 06/20/23 03:00 06/20/23 03:15 06/20/23 03:30 Pulse Rate 64 64 64 Respiratory Rate 16 16 16 Blood Pressure 121/72 108/64 105/63 Pulse Oximetry 97 97 98 Oxygen Delivery Method Room Air Room Air Room Air 06/20/23 04:00 06/20/23 04:30 06/20/23 05:00 Pulse Rate 63 64 61 Respiratory Rate 16 16 19 Blood Pressure 118/61 107/77 107/61 Pulse Oximetry 97 94 94 Oxygen Delivery Method Room Air Room Air Room Air 06/20/23 05:30 06/20/23 06:00 06/20/23 06:30 Pulse Rate 64 64 64 Respiratory Rate 17 16 16 Blood Pressure 108/67 108/61 118/63 Pulse Oximetry 97 95 95 Oxygen Delivery Method Room Air Room Air 06/20/23 07:00 06/20/23 09:55 Pulse Rate 64 82 Respiratory Rate 16 Blood Pressure 108/63 Pulse Oximetry 94 95 Oxygen Delivery Method Room Air MDM - Chest Pain <Kamla Lau DO - Last Filed: 06/21/23 10:44> Lab Data 06/19/23 20:53 06/19/23 20:53 Labs: Lab Results 06/19/23 06/19/23 06/19/23 Range/Units 20:53 20:53 20:53 WBC 6.3 (4.5-11.0) X10^3/uL RBC 4.14 (4.0-5.2) X10^6/uL Hgb 12.0 (12.0-16.0) g/dL Hct 35.9 L (36-46) % MCV 86.6 (80-100) fL MCH 28.9 (26-34) PG MCHC 33.4 (30-36) % RDW 14.6 (11.6-14.8) % Plt Count 314 (150-400) X10^3/uL Neut % (Auto) 55.1 (50-75) % Lymph % (Auto) 31.3 (25-40) % [place] % (Auto) 10.3 (3-14) % Eos % (Auto) 2.2 (2-4) % Baso % (Auto) 1.1 (0-2) % Neut # (Auto) 3400 (0308-3227) /uL Lymph # (Auto) 2000 (4059-2801) /uL [place] # (Auto) 600 (0-900) /uL Eos # (Auto) 100 (0-450) /uL Baso # (Auto) 100 (0-100) /uL PT 33.1 H D (10.1-12.7) SECONDS INR 2.9 H (0.9-1.3) APTT 43 H (26-36) SECONDS Sodium 138 (137-145) mmol/L Potassium 4.0 (3.4-5.1) mmol/L Chloride 106 (98-107) mmol/L Carbon Dioxide 23 (22-32) mmol/L BUN 19 H (7-17) mg/dL Creatinine 0.75 (0.52-1.04) mg/dL Estimated GFR > 60 (>60) mL/min BUN/Creatinine Ratio 25.3 H (6-22) Glucose 100 (80-110) mg/dL Calcium 9.4 (8.4-10.2) mg/dL Magnesium 2.1 (1.6-2.3) mg/dL Total Bilirubin 0.4 (0.2-1.3) mg/dL AST 32 (14-36) IU/L ALT 31 (<35) IU/L Alkaline Phosphatase 107 (38-126) U/L Total Creatine Kinase 210 H (30-135) U/L Troponin I < 0.012 (0.01-0.034) ng/mL NT-Pro-B Natriuret Pep (<450) pg/mL Total Protein 7.0 (6.3-8.2) g/dL Albumin 3.9 (3.5-5.0) g/dL Globulin 3.1 (1.7-4.1) g/dL Albumin/Globulin Ratio 1.3 (1.0-2.8) Lipase 97 (23-300) U/L 06/20/23 06/20/23 06/20/23 Range/Units 00:48 00:48 02:58 WBC (4.5-11.0) X10^3/uL RBC (4.0-5.2) X10^6/uL Hgb (12.0-16.0) g/dL Hct (36-46) % MCV (80-100) fL MCH (26-34) PG MCHC (30-36) % RDW (11.6-14.8) % Plt Count (150-400) X10^3/uL Neut % (Auto) (50-75) % Lymph % (Auto) (25-40) % [place] % (Auto) (3-14) % Eos % (Auto) (2-4) % Baso % (Auto) (0-2) % Neut # (Auto) (8230-5605) /uL Lymph # (Auto) (9978-3140) /uL [place] # (Auto) (0-900) /uL Eos # (Auto) (0-450) /uL Baso # (Auto) (0-100) /uL PT (10.1-12.7) SECONDS INR (0.9-1.3) APTT (26-36) SECONDS Sodium (137-145) mmol/L Potassium (3.4-5.1) mmol/L Chloride (98-107) mmol/L Carbon Dioxide (22-32) mmol/L BUN (7-17) mg/dL Creatinine (0.52-1.04) mg/dL Estimated GFR (>60) mL/min BUN/Creatinine Ratio (6-22) Glucose (80-110) mg/dL Calcium (8.4-10.2) mg/dL Magnesium (1.6-2.3) mg/dL Total Bilirubin (0.2-1.3) mg/dL AST (14-36) IU/L ALT (<35) IU/L Alkaline Phosphatase (38-126) U/L Total Creatine Kinase (30-135) U/L Troponin I 0.015 < 0.012 (0.01-0.034) ng/mL NT-Pro-B Natriuret Pep 1690 H (<450) pg/mL Total Protein (6.3-8.2) g/dL Albumin (3.5-5.0) g/dL Globulin (1.7-4.1) g/dL Albumin/Globulin Ratio (1.0-2.8) Lipase (23-300) U/L Imaging Data Chest x-ray: Radiologist's Impression: Close Chest X-Ray (Signed) Jacob Grace - 06/19/23 Echocardiogram Ultrasound (Signed) Ha Olivo - 06/17/23 Telemetry Strips 06/17/23 Chest CTA (Signed) Jonathan Cobb - 06/17/23 Head/Neck CTA (Signed) Monique Davis - 01/23/[address] (Signed) Monique Davis - 01/23/23 Wrist X-Ray (Signed) Orlin Wetzel - 01/24/21 Duplex Scan Lower Extremity Artery (Signed) Luis Acosta - 05/18/18 [place] [address] XRay Report Signed Patient: Deandre Powell MR#: [id number] : 1935 Acct:[id number] Age/Sex: 88 / F Date of Service: 06/19/23 Loc: ED Accession Number: [id number] ?? Procedure: XR chest 1V Ordering Provider: Kamla Lau D.O. PROCEDURE:? XR CHEST 1V ? INDICATIONS:? chest pain ? TECHNIQUE:? One view of the chest was acquired.? ? COMPARISON:? None. ? FINDINGS:? ? Surgical changes and devices:? None.? ? Lungs and pleura:? Lungs are clear.? No pleural effusions or pneumothorax.? ? Mediastinum:? Mediastinal contours appear normal.? Heart size is normal.? ? Bones and chest wall:? No suspicious bony lesions.? Overlying soft tissues appear unremarkable.? ? ? IMPRESSION:? ? 1.? No acute cardiopulmonary disease. ? ? ? Dictated by: Jacob Grace M.D. on 06/19/2023 at 22:29 ? ? Approved by: Jacob Grace M.D. on 06/19/2023 at 22:29?? CT scan - chest: Radiologist's Impression: [address] [id number] [address] Scan Report Signed Patient: Deandre Powell MR#: [id number] : 1935 Acct:[id number] Age/Sex: 88 / F Date of Service: 06/17/23 Loc: ED Accession Number: [id number] ?? Procedure: CT angio chest PE protocol Ordering Provider: Italo Hung D.O. PROCEDURE:? CT ANGIO CHEST PE PROTOCOL ? INDICATIONS:? tachycardia, SOB, pain, critical dimer, long distance travel ? TECHNIQUE:? After the administration of intravenous contrast, 2 mm thick sections acquired from the pulmonary apices to the posterior costophrenic angles.? 3-dimensional maximum intensity projection (MIP) coronal and sagittal reformats were then acquired through the thorax.? For radiation dose reduction, the following was used:? automated exposure control, adjustment of mA and/or kV according to patient size.? ? COMPARISON:? None. ? FINDINGS:? Image quality:? Excellent.? ? Pulmonary arteries:? Pulmonary arteries are normal in size, and demonstrate no intraluminal filling defects to suggest central pulmonary embolism.? ? Lungs and pleura:? Mild scattered areas of ground-glass opacity can be seen.? There is a mild degree of subpleural fibrotic change seen, which is worst within the lower lobes. ? Mediastinum:? Heart size is normal, without pericardial effusion.? No mediastinal or hilar adenopathy.? At least 1 calcified mediastinal lymph node is seen.? Thoracic aorta is normal in caliber and enhancement.? Esophagus is normal in caliber, without hiatal hernia.? ? Bones and chest wall:? No suspicious bony lesions.? Ribs and thoracic spine appear intact throughout.? Accentuated thoracic kyphosis is seen.? Age-appropriate bony degenerative changes are seen. ? Thyroid gland is enlarged, with a 1.5 cm right thyroid nodule seen. No axillary or supraclavicular adenopathy.? ? Abdomen:? Calcified granulomas can be seen within the spleen and within the liver. The visualized portions of the upper abdominal structures are otherwise unremarkable for imaging technique. ? ? IMPRESSION:? Negative for pulmonary embolism. ? Mild scattered ground-glass opacity can be seen.? Please consider mild pulmonary edema. ? Enlarged thyroid noted, with a 1.5 cm right thyroid nodule.? When clinically appropriate, please consider a follow-up thyroid ultrasound for further evaluation. ? Mild subpleural fibrotic change can be seen.? Additional findings:? Prior granulomatous exposure.? ? Dictated by: Jonathan Cobb M.D. on 06/17/2023 at 15:12 ? ? Approved by: Jonathan Cobb M.D. on 06/17/2023 at 15:14?? echo: Radiologist's Impression: Close Chest X-Ray (Signed) Jacob Grace - 06/19/23 Echocardiogram Ultrasound (Signed) Ha Olivo - 06/17/23 Telemetry Strips 06/17/23 Chest CTA (Signed) Jonathan Cobb - 06/17/23 Head/Neck CTA (Signed) Monique Davis - 01/23/[address] (Signed) Monique Davis - 01/23/23 Wrist X-Ray (Signed) Orlin Wetzel - 01/24/21 Duplex Scan Lower Extremity Artery (Signed) Luis Acosta - 05/18/18 [place] [address] Echocardiography Report Signed Patient: Deandre Powell MR#: [id number] : 1935 Acct:[id number] Age/Sex: 88 / F Date of Service: 06/17/23 Loc: 205-1 Accession Number: [id number] ?? Procedure: EC echo doppler complete Ordering Provider: Raleigh Lebron MD ? [facility] +[facility]+ : ? :? [address] ? : ? : : ? :? [place], [place] ? : ? : : ? :? [address] ? : ? : : ? : ? Phone: [phone] : ? : [phone]? [phone]? +---------+ ? Echocardiogram Report + + :Name: DEANDRE POWELL? Study Date: 06/18/2023? Height: 66 in? : :[facility] ? ? ? ReadingLocation:? Weight: 165 lb : : ? Gender: Female? BSA: 1.8 m2? ? : :: 1935 ? Age: 88 yrs ? BP: 109/79 mmHg: :Reason For Study: Atrial Flutter ? : :Ordering Physician: Michael, ? : :Jeff ? Performed By: Mari Andrea? : :Referring: Jeff Rodriguez? : + + Interpretation Summary The left ventricle is normal in size. Left ventricular systolic function appears normal without focal wall motion abnormalities. The ejection fraction is estimated to be 55-60%. The right ventricle is normal in size and function. The right ventricular systolic pressure is estimated to be at least 42 mmHg based on an estimated right atrial pressure of 15 mm Hg. The left atrial size is normal. Right atrial size is normal. There is mild mitral regurgitation. There is mild to moderate tricuspid regurgitation. The aortic root is normal size. ? Procedure: ? A two-dimensional transthoracic echocardiogram with color flow and Doppler was performed. The study quality was technically adequate. There is no prior echocardiogram noted for this patient. The patient was in atrial fibrillation with rapid ventricular response during the exam with a heart rate exceeding 100 bpm. Left Ventricle: ? The left ventricle is normal in size. There is mild asymmetric left ventricular hypertrophy. Left ventricular systolic function appears normal without focal wall motion abnormalities. The ejection fraction is estimated to be 55-60%. Diastolic function could not be accurately assessed due to atrial fibrillation. Right Ventricle: ? The right ventricle is normal in size and function. Atria: ? The left atrial size is normal. Right atrial size is normal. There is no Doppler evidence for an interatrial shunt. Mitral Valve: ? The mitral valve leaflets appear mildly thickened, but open well. There is no mitral valve stenosis. There is mild mitral regurgitation. Aortic Valve: ? The aortic valve is trileaflet. The aortic valve opens well. There is mild aortic valve sclerosis. There is no aortic valve stenosis. There is trace aortic regurgitation. Tricuspid Valve: ? The tricuspid valve is normal. There is no tricuspid stenosis. There is mild to moderate tricuspid regurgitation. The right ventricular systolic pressure is estimated to be at least 42 mmHg based on an estimated right atrial pressure of 15 mm Hg. Pulmonic Valve: ? The pulmonic valve leaflets are thin and pliable; valve motion is normal. There is no pulmonic valvular stenosis. There is mild pulmonic regurgitation. Great Vessels: ? The aortic root is normal size. The ascending aorta is normal in size. The pulmonary artery is normal size. The IVC is dilated (diameter is greater than 2.1 cm) and it collapses less than 50% with a sniff. This suggests a high right atrial pressure of 15 mm Hg. The IVC has a measurement of 31 mm. Pericardium/ Pleura ? There is no pericardial effusion. There is no pleural effusion. ? MMode/2D Measurements & Calculations LVIDd: 4.4 cm ? LVOT diam: 1.8 cm LVIDs: 3.0 cm ? Ao root diam: 3.1 cm FS: 31.8 %? asc Aorta Diam: 3.4 cm IVSd: 1.0 cm LVPWd: 1.3 cm LV king. diameter/BSA (cm/m^2): 2.4 LV sys. diameter/BSA (cm/m^2): 1.6 ? LA A2 area: 14.1 cm2? RA long axis: 5.5 cm LA A4 area: 19.0 cm2? RA area: 16.4 cm2 LA length (vol): 4.7 cm ? RA vol: 41.4 ml LA vol: 48.1 ml ? RA : 22.5 ml/m2 LA vol index: 26.1 ml/m2 ? RVD1 (basal): 3.7 cm? LVLs ap4: 4.8 cm ? LVLd ap2: 6.3 cm LVLs ap2: 5.3 cm ? Doppler Measurements & Calculations TR max cecilia: 243.5 cm/sec TR max P.2 mmHg ? Reading Physician:02:29 PM ECG Data Attestation: I personally reviewed and interpreted this ECG as follows: Prior ECG tracings: available for review Interpretation: Atrial flutter rate of 133 QRS 86 QTC 467. Left axis deviation. Nonspecific change no ST elevation. Patient has prior EKG from 06/17/2023 which showed appeared to be sinus tach but was later slowed and showed the soap flutter with consistent heart rate of 135 persistently in the department during that time. EKG 2. Shows appears to be aflutter vs fib with a rate of 80s, QRS of 90 QTC of 502. No acute or dynamic ST changes appreciated. Treatment and disposition Code Status and discussions:: DNR/DNI with limited interventions. MDM Narrative Medical decision making narrative: This is a 88-year-old female with recent hospitalization on 06/17/23 for new onset atrial flutter patient initially appeared to be sinus tachycardia but was very persistently a 130s was slowed and found to be what appeared to be flutter. She had workup including CT of the chest that ruled out pulmonary emboli on 06/17/23, had negative troponin was elevated BNP at 2500, patient's TSH was low at 0.064 but free T4 in T3 were appropriate. Patient was rate controlled, started on Xarelto, had an ECHO on 06/17/23 which showed an EF 55% with [id number] tricuspid regurg. Was feeling much improved and discharged home on metoprolol succinate 50 mg daily as well as Xarelto nightly. Patient has had her medications for the past 2 days since discharge. She states this morning she felt her heart rate was fast she had chest tightness and shortness of breath with fast heartbeat but when rate controlled resolves. This was about 8:00 a.m. in the morning has persistent throughout the day. Her workup here shows clear chest x-ray, troponins negative had slight upward trend but still negative and on repeat has trended back down. BNP is lower than it was initial hospitalization at 16 90 down from 2600. Creatinine is normal normal, electrolytes with a potassium of 4, Mag of 2.1, CBC is normal showing are no 2.9 patient was started on Xarelto 48+ hours ago. Patient had several doses of IV metoprolol x3, had improvement every but would bumped back up to 120s frequently. Dr. Sorensen, cardiology at [facility] recommends adding diltiazem drip at this time rapid ventricular response which has not been controlled so far. Asks to continue Xarelto daily. He does note that there will be a interaction between the diltiazem and Xarelto and states that this is expected and to continue. Transfer for KEILY and potential cardioversion and patient would be a good candidate. Patient is agreeable with this plan. Patient is waitlisted at [facility], [facility], calls out to several other facilities for possible placement. Signed out to Dr. Day while awaiting goal for transfer. Rate controlled on diltiazem gtt. Dr Day: Received turned over. Reviewed patient's history and physical and workup up to this point. Patient is now rate controlled with a heart rate in the mid 60s. Repeat EKG shows what appears to be a flutter with a fairly consistent heart rate in the mid 60s. She is been on 5 of diltiazem. Patient was given her morning dose of Toprol XL 50 mg and then 30 minutes later the diltiazem drip was stopped. She maintained her heart rate in the mid 60s. She ambulated around the department. Her heart rate went to the mid 70s low 80s. She was not having any palpitations. Some mild shortness of breath. Plan will be to increase her metoprolol and have her take 50 mg in the morning and 25 mg in the evening. She has an appointment with Cardiology scheduled for Monday of this week. She was given return precautions. <Aureliano Day, DO - Last Filed: 06/20/23 10:09> Lab Data Labs: Lab Results 06/19/23 06/19/23 06/19/23 Range/Units 20:53 20:53 20:53 WBC 6.3 (4.5-11.0) X10^3/uL RBC 4.14 (4.0-5.2) X10^6/uL Hgb 12.0 (12.0-16.0) g/dL Hct 35.9 L (36-46) % MCV 86.6 (80-100) fL MCH 28.9 (26-34) PG MCHC 33.4 (30-36) % RDW 14.6 (11.6-14.8) % Plt Count 314 (150-400) X10^3/uL Neut % (Auto) 55.1 (50-75) % Lymph % (Auto) 31.3 (25-40) % [place] % (Auto) 10.3 (3-14) % Eos % (Auto) 2.2 (2-4) % Baso % (Auto) 1.1 (0-2) % Neut # (Auto) 3400 (9539-8177) /uL Lymph # (Auto) 2000 (6727-1969) /uL [place] # (Auto) 600 (0-900) /uL Eos # (Auto) 100 (0-450) /uL Baso # (Auto) 100 (0-100) /uL PT 33.1 H D (10.1-12.7) SECONDS INR 2.9 H (0.9-1.3) APTT 43 H (26-36) SECONDS Sodium 138 (137-145) mmol/L Potassium 4.0 (3.4-5.1) mmol/L Chloride 106 (98-107) mmol/L Carbon Dioxide 23 (22-32) mmol/L BUN 19 H (7-17) mg/dL Creatinine 0.75 (0.52-1.04) mg/dL Estimated GFR > 60 (>60) mL/min BUN/Creatinine Ratio 25.3 H (6-22) Glucose 100 (80-110) mg/dL Calcium 9.4 (8.4-10.2) mg/dL Magnesium 2.1 (1.6-2.3) mg/dL Total Bilirubin 0.4 (0.2-1.3) mg/dL AST 32 (14-36) IU/L ALT 31 (<35) IU/L Alkaline Phosphatase 107 (38-126) U/L Total Creatine Kinase 210 H (30-135) U/L Troponin I < 0.012 (0.01-0.034) ng/mL NT-Pro-B Natriuret Pep (<450) pg/mL Total Protein 7.0 (6.3-8.2) g/dL Albumin 3.9 (3.5-5.0) g/dL Globulin 3.1 (1.7-4.1) g/dL Albumin/Globulin Ratio 1.3 (1.0-2.8) Lipase 97 (23-300) U/L 06/20/23 06/20/23 06/20/23 Range/Units 00:48 00:48 02:58 WBC (4.5-11.0) X10^3/uL RBC (4.0-5.2) X10^6/uL Hgb (12.0-16.0) g/dL Hct (36-46) % MCV (80-100) fL MCH (26-34) PG MCHC (30-36) % RDW (11.6-14.8) % Plt Count (150-400) X10^3/uL Neut % (Auto) (50-75) % Lymph % (Auto) (25-40) % [place] % (Auto) (3-14) % Eos % (Auto) (2-4) % Baso % (Auto) (0-2) % Neut # (Auto) (3797-4263) /uL Lymph # (Auto) (7522-9057) /uL [place] # (Auto) (0-900) /uL Eos # (Auto) (0-450) /uL Baso # (Auto) (0-100) /uL PT (10.1-12.7) SECONDS INR (0.9-1.3) APTT (26-36) SECONDS Sodium (137-145) mmol/L Potassium (3.4-5.1) mmol/L Chloride (98-107) mmol/L Carbon Dioxide (22-32) mmol/L BUN (7-17) mg/dL Creatinine (0.52-1.04) mg/dL Estimated GFR (>60) mL/min BUN/Creatinine Ratio (6-22) Glucose (80-110) mg/dL Calcium (8.4-10.2) mg/dL Magnesium (1.6-2.3) mg/dL Total Bilirubin (0.2-1.3) mg/dL AST (14-36) IU/L ALT (<35) IU/L Alkaline Phosphatase (38-126) U/L Total Creatine Kinase (30-135) U/L Troponin I 0.015 < 0.012 (0.01-0.034) ng/mL NT-Pro-B Natriuret Pep 1690 H (<450) pg/mL Total Protein (6.3-8.2) g/dL Albumin (3.5-5.0) g/dL Globulin (1.7-4.1) g/dL Albumin/Globulin Ratio (1.0-2.8) Lipase (23-300) U/L MDM Narrative Medical decision making narrative: This is a 88-year-old female with recent hospitalization on 06/17/23 for new onset atrial flutter patient initially appeared to be sinus tachycardia but was very persistently a 130s was slowed and found to be what appeared to be flutter. She had workup including CT of the chest that ruled out pulmonary emboli on 06/17/23, had negative troponin was elevated BNP at 2500, patient's TSH was low at 0.064 but free T4 in T3 were appropriate. Patient was rate controlled, started on Xarelto, had an ECHO on 06/17/23 which showed an EF 55% with [id number] tricuspid regurg. Was feeling much improved and discharged home on metoprolol succinate 50 mg daily as well as Xarelto nightly. Patient has had her medications for the past 2 days since discharge. She states this morning she felt her heart rate was fast she had chest tightness and shortness of breath with fast heartbeat but when rate controlled resolves. This was about 8:00 a.m. in the morning has persistent throughout the day. Her workup here shows clear chest x-ray, troponins negative had slight upward trend but still negative and on repeat has trended back down. BNP is lower than it was initial hospitalization at 16 90 down from 2600. Creatinine is normal normal, electrolytes with a potassium of 4, Mag of 2.1, CBC is normal showing are no 2.9 patient was started on Xarelto 48+ hours ago. Patient had several doses of IV metoprolol x3, had improvement every but would bumped back up to 120s frequently. Dr. Sorensen, cardiology at [facility] recommends adding diltiazem drip at this time. Asks to continue Xarelto daily. He does note that there will be a interaction between the diltiazem and Xarelto and states that this is expected and to continue. Transfer for KEILY and potential cardioversion. Patient is agreeable with this plan. Patient is waitlisted at [facility], [facility], calls out to several other facilities for possible placement. Signed out to Dr. Day while awaiting goal for transfer. Rate controlled on diltiazem gtt. Dr Day: Received turned over. Reviewed patient's history and physical and workup up to this point. Patient is now rate controlled with a heart rate in the mid 60s. Repeat EKG shows what appears to be a flutter with a fairly consistent heart rate in the mid 60s. She is been on 5 of diltiazem. Patient was given her morning dose of Toprol XL 50 mg and then 30 minutes later the diltiazem drip was stopped. She maintained her heart rate in the mid 60s. She ambulated around the department. Her heart rate went to the mid 70s low 80s. She was not having any palpitations. Some mild shortness of breath. Plan will be to increase her metoprolol and have her take 50 mg in the morning and 25 mg in the evening. She has an appointment with Cardiology scheduled for Monday of this week. She was given return precautions. Critical Care Time <Kamla Lau, - Last Filed: 06/21/23 10:44> Critical Care Time Attestation: The high probability of a clinically significant, sudden or life threatening deterioration of the [cardiac, pulm] system(s) required my full and direct attention, intervention and personal management. The aggregate critical care time was [35] minutes. This time is in addition to time spent performing reported procedures but includes the following: [x] Data Review and interpretation [x] Patient assessment and monitoring of vital signs [x] Documentation [x] Medication orders and management Discharge Plan Departure Patient Disposition: Home Clinical Impression: Atrial flutter with rapid ventricular response, CHF (congestive heart failure) Instructions: DI for Atrial Flutter Activity Restrictions/Additional Instructions: I do recommend that you continue to take all of your medications as directed however increase your metoprolol from 50 mg just in the morning to 50 mg in the morning and 25 mg in the evening. I do recommend that you keep your scheduled appointment with Cardiology later this week. Continue to take your Xarelto. Return to the emergency department for new or worsening symptoms. Prescriptions: No Action metoprolol succinate 50 mg tablet extended release 24 hr 50 mg PO DAILY Qty: 30 0RF Xarelto 20 mg tablet 20 mg PO QPM Qty: 90 0RF Rx Instructions: must administer with evening meal metoprolol tartrate 25 mg tablet 25 mg PO PRN PRN (Reason: palpitations) Qty: 30 0RF loratadine 10 mg tablet 10 mg PO PRN PRN (Reason: allergies) Referrals: Malini Ledesma MD [Primary Care Provider] - Stand Alone Forms: Patient Portal/API
[2023-06-20] MEDS: METOPROLOL TARTRATE 5 MG/5 ML INJ IV ×3 (00:45→01:17)
[2023-06-20 01:17] LABS: Troponin I 0.015 ng/mL (0.01-0.034)
[2023-06-20 01:34] LABS: NT-proBNP (BNP-Adult 18+) 1690 pg/mL (<450)
--- NOTE | 2023-06-20 01:36 | PC.NURSE ---
Addendum entered by Cele Epps R.N. 06/20/23 02:10: correction, afib, not aflutter Original Note: Noted to sustain HR 60s - 80s since 0125. Repeat EKG performed. Continues to appear aflutter.
--- NOTE | 2023-06-20 02:08 | PC.NURSE ---
Pt HR noted to be from 60s - 110s since 0145 in afib
[2023-06-20] MEDS: DILTIAZEM 125 MG/125 ML PIGGYBACK IV (02:12)
[2023-06-20 03:29] LABS: Troponin I < 0.012 ng/mL (0.01-0.034)
--- NOTE | 2023-06-20 06:22 | PC.NURSE ---
Pt with sustained HR in 60s, appears a flutter since 0245 continues on diltiazem drip at 5mg/hr.
[2023-06-20] MEDS: METOPROLOL ER 50 MG TABLET PO (08:28)
== END 2023-06-20 10:28 | disposition home or self-care (01) ==
PROVIDERS: Emergency Medicine; Emergency Provider Emergency Medicine; Family Provider Internal Medicine; PCP Internal Medicine
DX: I48.92 Unspecified atrial flutter (principal); Z79.01 Long term (current) use of anticoagulants; I50.9 Heart failure, unspecified; R00.0 Tachycardia, unspecified; R07.9 Chest pain, unspecified; R06.02 Shortness of breath
CPT/HCPCS: 36415; 71045; 80053; 82550; 83690; 83735; 83880; 84484; 85025; 85610; 85730; 93005; 96365; 96366; 96375; 99284; 99291

== ENCOUNTER → 2023-10-30 13:31 | Outpatient (CLI) | payer MEDICARE, OTHER, SELFPAY ==
[2023-06-20 04:00] VITALS: BMI 26.6
--- NOTE | 2023-10-30 13:33 | DI.MRI.S_ITS ---
PROCEDURE: MR ANGIO HEAD WO CON INDICATIONS: Pulsatile tinnitus, left ear Diplopia TECHNIQUE: Noncontrast axial 3-D [id number] MR angiogram, with 3-dimensional maximum intensity projection (MIP) reformats of the internal carotid arteries and posterior circulation then performed. COMPARISON: [facility], CT, CT ANGIO HEAD AND NECK, 01/23/2023, 11:24. FINDINGS: Image quality: Excellent. Anterior circulation: Intracranial internal carotid arteries demonstrate normal size and intraluminal flow signal. The flow within the paired anterior cerebral arteries is normal and symmetric. The flow within the middle cerebral arteries is normal and symmetric. The anterior communicating artery is seen. No stenoses, occlusions, or aneurysms. No abnormal vascular loops can be seen involving either internal auditory canal. Posterior circulation: Visualized portions of the vertebral arteries demonstrate normal caliber, and join to form a normal appearing basilar artery. The flow within the posterior cerebral arteries is normal and symmetric. No stenoses, occlusions, or aneurysms. IMPRESSION: No significant intracranial arterial abnormality is seen. No imaging explanation is found for this patient's presenting symptoms. Dictated by: Jonathan Cobb M.D. on 10/30/2023 at 13:47 Approved by: Jonathan Cobb M.D. on 10/30/2023 at 13:48
== END ==
LOC: MRI 13:32
PROVIDERS: Family Provider Internal Medicine; PCP Internal Medicine; Referring Provider Psychiatry & Neurology Neurology; Visit Provider Psychiatry & Neurology Neurology
DX: H93.A2 Pulsatile tinnitus, left ear (principal); H53.2 Diplopia
CPT/HCPCS: 70544